=== PATIENT | female | born 1940 | race Caucasian/White ===

== ENCOUNTER 2024-07-21 14:39 | Inpatient (IN) | payer MEDICARE, SELFPAY ==
[2024-07-21 14:45] VITALS: O2SAT 2
--- NOTE | 2024-07-21 14:50 | XR_ITS ---
PROCEDURE INFORMATION: Exam: XR Chest Exam date and time: 07/21/2024 3:06 PM Age: 83 years old Clinical indication: Apnea; Additional info: Shortness of breath TECHNIQUE: Imaging protocol: Radiologic exam of the chest. Views: 1 view. COMPARISON: No relevant prior studies available. FINDINGS: Lungs: Hyperinflated lungs with mild upper lung oligemia suggestive of emphysematous change. Calcified granuloma right mid lung. Lungs are otherwise clear. Pleural spaces: Unremarkable. No pleural effusion. No pneumothorax. Heart/Mediastinum: Unremarkable. No cardiomegaly. Bones/joints: Unremarkable. IMPRESSION: Hyperinflated lungs with mild upper lung oligemia suggestive of emphysematous change. Calcified granuloma right mid lung. Lungs are otherwise clear.
--- NOTE | 2024-07-21 14:50 | ECG_ITS ---
APPROVED REPORT Exam: Resting ECG HR:86 bpm ECG Measurements Heart Rate 86 AXES DE 234 P 84 QRSd 130 QRS -25 QT 411 T 76 QTc 454 Conclusion SINUS RHYTHM WITH FIRST DEGREE AV BLOCK BORDERLINE LEFT AXIS DEVIATION [QRS AXIS < -20] MODERATE INTRAVENTRICULAR CONDUCTION DELAY [110+ ms QRS DURATION] NONSPECIFIC T-WAVE ABNORMALITY ABNORMAL ECG UNCONFIRMED REPORT Electronically signed by : Howie Cartwright MD 07/22/2024 08:11:43
--- NOTE | 2024-07-21 14:54 | PC.NURSE ---
Report from [facility] nurse Dottie WALLER.
[2024-07-21] MEDS: ALBUTEROL 0.083% 2.5 MG/3 ML NEB IH (14:59)
[2024-07-21 15:17] LABS: Basophils # 0.1 K/mm3 (0-0.2); Basophils % 0.8 % (0.1-2.0); Hematocrit 35.8 % (37.0-47.0); Hemoglobin 11.8 g/dL (12.2-16.2); Lymphocytes # 0.4 K/mm3 (0.7-4.5); Lymphocytes % 4.5 % (10-50); Mean Corpuscular Hemoglobin 29.4 pg (27.0-31.2); Mean Corpuscular Volume 89.1 fl (81-99); Mean Platelet Volume 11.9 fl (7.4-10.4); Monocytes # 0.1 K/mm3 (0.1-1.0); Monocytes % 1.1 % (1.7-9.3); Neutrophils # 7.4 K/mm3 (1.8-7.8); Neutrophils % 93.3 % (37.0-80.0); Nucleated Red Blood Cells # 0 10^3/uL; Nucleated Red Blood Cells % 0 %; Platelet Count 166 K/mm3 (142-424); Red Blood Count 4.02 M/mm3 (4.20-5.40); Red Cell Distribution Width-SD 42.6 fL; White Blood Count 7.9 K/mm3 (4.8-10.8)
[2024-07-21 15:19] VITALS: BMI 15.5
[2024-07-21 15:20] LABS: Lactate Venous 1.5 mmol/L (0.4-2.0); VBG Base Excess -0.8 mmol/L (-2.4-2.3); VBG HCO3 23.5 mmol/L (23-30); VBG Oxygen Saturation 96.9 % (50-70); VBG PCO2 36.2 mmol/L (35-51); VBG PH 7.43 mmol/L (7.31-7.41); VBG PO2 88.6 mmol/L (28-40); VBG Total CO2 24.7 mmol/L (23-27)
[2024-07-21 15:21] LABS: MANUAL DIFFERENTIAL MANUAL DIFFERENTIAL (MANUAL DIFF)
--- NOTE | 2024-07-21 15:33 | PC.NURSE ---
Pt and family are poor historians. Family asked to bring home medications in.
[2024-07-21 15:44] LABS: Alanine Aminotransferase 15 U/L (12-78); Albumin Level 4.5 g/dl (3.5-5.0); Albumin/Globulin Ratio 1.8 (1.1-1.8); Alkaline Phosphatase 84 U/L (38-126); Anion Gap 16.6 mEq/L (5-15); Aspartate Amino Transferase 28 U/L (14-36); Bilirubin,Total 0.9 mg/dl (0.2-1.3); Blood Urea Nitrogen 12 mg/dl (7-17); Calcium 9.2 mg/dl (8.4-10.2); Carbon Dioxide 24 mmol/L (22.0-30.0); Chloride 99 mmol/L (98-107); Creatinine Clearance Estimated 27 mL/min (50-200); Estimated Glomerular Filt Rate 95 ml/min (>60); GFR (African American) 115 ML/MIN (>60); Globulin 2.5 g/dL (1.3-3.2); Glucose 140 mg/dl (74-100); Magnesium 1.8 mg/dl (1.6-2.3); Potassium 3.6 mmoL/L (3.5-5.1); Sodium 136 mmol/L (136-145)
[2024-07-21 15:52] LABS: Hemoglobin A1C 5.1 % (4.0-6.0)
[2024-07-21 15:58] LABS: Cholesterol 204 mg/dl (140-200); Triglycerides 76 mg/dl (30-150); VLDL Cholesterol 15 mg/dL (0-40)
[2024-07-21 16:00] VITALS: BP 144/62; PULSE 90; PULSE 92; RESP 22; TEMP 36.5; O2SAT 95
[2024-07-21 16:01] LABS: Free T4 (Free Thyroxine) 1.82 ng/dl (0.78-2.19)
[2024-07-21 16:09] LABS: Direct LDL Cholesterol 65.48 mg/dL (100-129); NT Pro Brain Natriuretic Pep. 1560 pg/mL (0-450)
[2024-07-21 16:19] LABS: HDL Cholesterol 101 mg/dl (40-60)
[2024-07-21 16:20] LABS: Thyroid Stimulating Hormone 0.47 uIU/mL (0.465-4.68)
[2024-07-21 16:21] LABS: Lymphocytes % 7 % (10-50); Monocytes % 1 % (2-9); Neutrophils % 92 % (42-76); Platelet Estimate Normal; RBC Morphology Normal; Total Cells Counted 100
[2024-07-21 16:22] LABS: Procalcitonin 0.186 ng/mL (0.0-2.0)
--- NOTE | 2024-07-21 17:22 | EXP.HP ---
History of Present Illness *Admission Date: 07/21/24 *Reason for visit:: Generalized weakness *History of present illness: Juliette Reyes is a 83-year-old female with medical history significant for COPD on 2 L baseline who initially presented to [facility] for progressive generalized weakness. Patient states she has had nasal congestion over the past few days and has been taking Mucinex. Does endorse intermittent left-sided chest pain for many months, but denies shortness of breath, abdominal pain, fever/chills, cough. She states typical chest pain lasts seconds to minutes without radiation. No former cardiac history, but patient is a former smoker. Patient also had apparent elevated pressures on arrival to [facility], high-sensitivity troponin doubled from 28-59. Patient was symptom-free at this time. Dr. Dillon was contacted by ED provider at [place] who recommended transfer to our facility for suspected NSTEMI. On arrival, patient was sitting in bed eating dinner. However, she was visibly grunting which she states is normal for her. No chest pain, respiratory distress, or hypoxia. Lungs clear to auscultation bilaterally. [facility] Disclaimer: The information contained in this section may have been updated after the patient was seen, as this information can be updated by other users. Medical History (Updated 07/21/24 @ 18:31 by Denis Martinez MD) Abdominal aneurysm Hypertension COPD (chronic obstructive pulmonary disease) Surgical History (Updated 07/21/24 @ 15:31 by Missy Poole RN) H/O: hysterectomy Family History (Updated 07/21/24 @ 15:33 by Missy Poole RN) Other Diabetes Myocardial disease Social History (Updated 07/21/24 @ 15:33 by Missy Poole RN) Smoking Status: Former smoker alcohol intake: never current occupational status: retired Travel in the last 8 weeks: None Other Medical History Have you received the Flu Vaccine for this season: No Have you received the Pneumonia Vaccine: Yes Meds Home Medications and Allergies New Prescriptions to Start Prescriptions: Allergies Allergy/AdvReac Type Severity Reaction Status Date / Time amoxicillin (From Augmentin) Allergy Rash Verified 07/21/24 15:15 cefaclor (From Ceclor) Allergy Rash Verified 07/21/24 15:15 clavulanic acid (From Allergy Rash Verified 07/21/24 15:15 Augmentin) hydrocodone Allergy Unknown Verified 07/21/24 15:15 allergy reaction nitrofurantoin (From Allergy Rash Verified 07/21/24 15:15 Macrobid) omeprazole (From Prilosec) Allergy Unknown Verified 07/21/24 15:15 allergy reaction oxaprozin (From Daypro) Allergy Rash Verified 07/21/24 15:15 sulfamethoxazole (From Allergy Rash Verified 07/21/24 15:15 Bactrim) trimethoprim (From Bactrim) Allergy Rash Verified 07/21/24 15:15 Exam Data for Last 24 hours Vital signs and Labs for Last 24 Hours: Temp Pulse Resp BP Pulse Ox O2 Del Method O2 Flow Rate 97.7 F 92 H 22 144/62 H 95 Nasal Cannula 3 07/21/24 16:00 07/21/24 16:00 07/21/24 16:00 07/21/24 16:00 07/21/24 16:00 07/21/24 17:00 07/21/24 17:00 Laboratory Results - last 24 hr 07/21/24 14:59: VBG pH 7.43 H, VBG pCO2 36.2, VBG pO2 88.6 H, VBG HCO3 23.5, VBG Total CO2 24.7, VBG O2 Saturation 96.9 H, VBG Base Excess -0.8, VBG Lactic Acid 1.5 07/21/24 15:00: WBC 7.9, RBC 4.02 L, Hgb 11.8 L, Hct 35.8 L, MCV 89.1, MCH 29.4, MCHC 33.0, RDW 13.0, Plt Count 166, MPV 11.9 H, Neut % (Auto) 93.3 H, Lymph % (Auto) 4.5 L, [place] % (Auto) 1.1 L, Eos % (Auto) 0.0 L, Baso % (Auto) 0.8, Neut # (Auto) 7.4, Lymph # (Auto) 0.4 L, [place] # (Auto) 0.1, Eos # (Auto) 0.0, Baso # (Auto) 0.1, Total Counted 100, Neutrophils % (Manual) 92 H, Lymphocytes % (Manual) 7 L, Monocytes % (Manual) 1 L, Platelet Estimate Normal, RBC Morphology Normal, Sodium 136, Potassium 3.6, Chloride 99, Carbon Dioxide 24, Anion Gap 16.6 H, BUN 12, Creatinine 0.60, Estimated Creat Clear 27, Estimated GFR 95, Est GFR ( Amer) 115, Glucose 140 H, Hemoglobin A1c 5.1, Calcium 9.2, Magnesium 1.8, Total Bilirubin 0.9, AST 28, ALT 15, Alkaline Phosphatase 84, Troponin I 0.10 H, NT-Pro-B Natriuret Pep 1560 H, Total Protein 7.0, Albumin 4.5, Globulin 2.5, Albumin/Globulin Ratio 1.8, Triglycerides 76, Cholesterol 204 H, LDL Cholesterol Direct 65.48 L, VLDL Cholesterol 15, HDL Cholesterol 101 H, Cholesterol/HDL Ratio 2.0, Procalcitonin 0.186, TSH 0.47, Free T4 1.82 I & O for Last 24 hours: Intake & Output 07/18/24 07/19/24 07/20/24 07/21/24 23:59 23:59 23:59 23:59 Weight 40.965 kg Constitutional Constitutional: no acute distress and cachectic *Routine HEENT Exam Head: Present normocephalic Eye: Present EOMI and PERRL ENT: Present mucous membranes moist *Routine Neck Exam Neck: Present supple; Absent lymphadenopathy *Routine Respiratory Exam Respiratory: Present CTA bilaterally *Routine Cardiovascular Exam Cardiovascular: Present RRR *Routine Abdominal Exam Abdominal: Present soft and normoactive bowel sounds; Absent tenderness *Routine Rectal Exam Rectal:: deferred *Routine Genitalia Exam Genitalia:: deferred *Routine Extremities Exam Extremities: Absent cyanosis, clubbing or edema *Routine Skin Exam Skin: Present warm; Absent rash *Routine Neurological Exam Neurological: Present alert and oriented X3 Assessment and Plan *Assessment and plan (1) NSTEMI (non-ST elevated myocardial infarction): Status: Acute Category: Medical Code(s): I21.4 - Non-ST elevation (NSTEMI) myocardial infarction (2) COPD (chronic obstructive pulmonary disease): Status: Acute Category: Medical Code(s): J44.9 - Chronic obstructive pulmonary disease, unspecified Plan Juliette Reyes is a 83-year-old female with medical history significant for COPD on 2 L baseline who initially presented to [facility] for progressive generalized weakness. Patient states she has had nasal congestion over the past few days and has been taking Mucinex. Does endorse intermittent left-sided chest pain for many months, but denies shortness of breath, abdominal pain, fever/chills, cough. She states typical chest pain lasts seconds to minutes without radiation. No former cardiac history, but patient is a former smoker. Patient also had apparent elevated pressures on arrival to [facility], high-sensitivity troponin doubled from 28-59. Patient was symptom-free at this time. Dr. Dillon was contacted by ED provider at [place] who recommended transfer to our facility for suspected NSTEMI. On arrival, patient was sitting in bed eating dinner. However, she was visibly grunting which she states is normal for her. No chest pain, respiratory distress, or hypoxia. Lungs clear to auscultation bilaterally. #NSTEMI #Intermittent left-sided chest pains #Generalized weakness ? Patient seem to be relatively comfortable, symptom-free and at baseline on arrival. Progressive weakness over the past week. ? Initial troponin 0.10, EKG without acute ischemic changes. Delta downtrend from high-sensitivity troponin of 59 at [place]. ? Given intermittent left-sided chest pains, and a former smoker we will treat this as an NSTEMI. ? Continue therapeutic Lovenox pending cardiology evaluation tomorrow. Aspirin load given at [place]. ? At this time, patient does not seem to be interested in left heart catheterization. ? A1c 5.1, LDL 65, TSH normal. ? Started aspirin 81 mg, metoprolol succinate 25 mg. ? Follow-up ECHO. ? Continuous cardiac telemetry. ? Follow-up repeat troponin at 6 PM. ? PT/OT consulted, pending recommendations. Follow-up UA, folate, B12, iron studies. #Elevated BNP ? BNP 1560, no signs of volume overload. Likely chronic heart disease. ? Follow-up ECHO. #COPD ? At baseline, grunting is baseline per patient. On 2.5 L. ? DuoNebs every 6 hours scheduled. Full code DVT prophylaxis: Lovenox 30 mg
[2024-07-21 18:46] LABS: Troponin I 0.12 ng/ml (0.00-0.034)
[2024-07-21 18:49] LABS: Adenovirus,PCR Not Detected (NotDetected); Bordetella Pertussis Not Detected (NotDetected); Chlamydophila Pneumoniae, PCR Not Detected (NotDetected); Coronavirus 19, PCR Not Detected (NotDetected); Coronavirus 229E Not Detected (NotDetected); Coronavirus NL63 Not Detected (NotDetected); Coronavirus OC43 Not Detected (NotDetected); Coronovirus HKU1,PCR Not Detected (NotDetected); Human Metapneumovirus Not Detected (NotDetected); Influenza A, PCR Not Detected (NotDetected); Influenza AH1, 2009 Not Detected (NotDetected); Influenza AH1, PCR Not Detected (NotDetected); Influenza AH3,PCR Not Detected (NotDetected); Influenza B, PCR Not Detected (NotDetected); Mycoplasma Pneumoniae, PCR Not Detected (NotDetected); Parainfluenza 1, PCR Not Detected (NotDetected); Parainfluenza 2, PCR Not Detected (NotDetected); Parainfluenza 3, PCR Not Detected (NotDetected); Parainfluenza 4, PCR Not Detected (NotDetected); Respiratory Syncytial Virus Not Detected (NotDetected); Rhinovirus/Enterovirus Not Detected (NotDetected)
[2024-07-21 20:00] VITALS: BP 150/79; PULSE 100; PULSE 85; RESP 16; TEMP 36.5; O2SAT 96
[2024-07-21] MEDS: METOPROLOL SUCCINATE XL 25MG TABLET 25 MG PO (20:07)
[2024-07-21] MEDS: IPRATROPIUM/ALBUTEROL 3 ML NEB IH (23:01)
[2024-07-21 23:19] VITALS: PULSE 87
[2024-07-22] VITALS (23 sets, daily range): BP systolic 124–169; BP diastolic 65–92; PULSE 60–110; RESP 14–20; TEMP 36.5–37; O2SAT 90–100; BMI 15.2
[2024-07-22] MEDS: MAGNESIUM SULFATE IN WATER 2 GM/50 ML PIGGYBACK IV (00:53)
--- NOTE | 2024-07-22 00:58 | PC.NURSE ---
patient had an episode of tachycardia 110's, soa with wheezes t/o and crackles at bases, while anxiously sitting on the side of the bed fanning herself. states she has episodes of anxiety at home. hospitalist at bedside. neb ordered w/ CXR. replaced magnesium also.
[2024-07-22 01:07] LABS: Microscopic, Urine URINE MICROSCOPIC (MICROSCOPIC)
[2024-07-22] MEDS: IPRATROPIUM BROMIDE 0.5 MG/2.5ML SOLUTION IH (01:19)
[2024-07-22 01:25] LABS: Bilirubin,Urine Negative (Negative); Blood, Urine 1+ (Negative); Color,Urine YELLOW (Yellow); Glucose,Urine (UA) Negative (Negative); Ketones,Urine 2+ (Negative); Leukocyte Esterase,Urine Negative (Negative); Nitrate,Urine Negative (Negative); PH,Urine 6.5 (5.0-8.5); Protein,Urine 1+ (Negative); Specific Gravity, Urine 1.015 (1.005-1.030); Urobilinogen,Urine 0.2 EU/dl (0.2)
[2024-07-22 01:26] LABS: Appearance,Urine Slightly Cloudy (Clear)
[2024-07-22 01:36] LABS: Bacteria,Urine Trace /lpf; WBC,Urine Occasional #/hpf (0-3)
[2024-07-22] MEDS: IPRATROPIUM/ALBUTEROL 3 ML NEB IH ×4 (05:57→23:49)
--- NOTE | 2024-07-22 08:26 | IR_ITS ---
APPROVED REPORT Patient Location: Inpatient Back Up Scan Coordinator: Jose Elias Hernandez, RT (R) PROCEDURES Left heart catheterization Left ventriculogram Selective coronary angiogram Drug-eluting stent deployment to the proximal and mid dominant right coronary artery INDICATION Non-ST elevation myocardial infarction, Coronary artery disease Informed consent was obtained prior to the procedure. COMPLICATIONS none Estimated Blood Loss: less than 10ml TECHNIQUE One percent lidocaine used to anesthetize the right anterior aspect of the wrist. The right radial artery was accessed via the Seldinger technique. A 6 Sudanese sheath was placed in the right radial artery. 2.5 mg of Verapamil, 800 mcg of nitroglycerin, 1mg Lidocaine and 5000 U Heparin were given through the arterial sheath. The 6 Sudanese JL 3 guide catheter was also used to perform left heart catheterization, left ventriculogram and selective coronary angiogram. At the end of the procedure the sheath was removed good hemostasis was achieved using Traclet band, patient was transferred to the postop holding area in stable condition. ANGIOGRAPHIC RESULTS The left main artery Normal The left anterior descending artery Has proximal calcified 30% stenoses with mid vessel 10 to 20% stenoses. The large diagonal artery has diffuse 10 to 20% stenoses The circumflex artery Nondominant yet still large with diffuse 10% luminal regularities The right coronary artery Dominant with proximal 38 concentric 40% stenosis with a mid vessel 70% stenosis followed by an additional 70% stenosis. Distally there is a 30% eccentric stenosis The CROOK ventriculogram reveals Normal 65% The left ventricular end-diastolic pressure 15 mmHg IMPRESSION Severe disease throughout the dominant right coronary artery as described above Successful stenting the dominant right coronary severe disease reduced to 0% with 2 contiguous drug-eluting stents Normal ejection fraction Normal LVEDP PLAN 1. Plavix and aspirin 2. Risk factor modification 3. Cardiac rehabilitation 4. Avoidance of tobacco products 5. LDL less than 55 to be achieved with high intensity statin Electronically signed by : Antoni Dillon MD 07/22/2024 14:10:20
[2024-07-22 08:37] LABS: Vitamin B12 375 pg/mL (239-931)
[2024-07-22 09:16] LABS: Folate 8.71 ng/mL
[2024-07-22] MEDS: METOPROLOL SUCCINATE XL 25MG TABLET 25 MG PO (09:18)
[2024-07-22] MEDS: ASPIRIN EC 81MG TABLET 81 MG PO (09:18)
--- NOTE | 2024-07-22 09:21 | P.CONCA_ITS ---
History of Present Illness History of Present Illness Consult date: 07/22/24 Requesting physician: Dneis Martinez Consult reason: shortness of breath Chief complaint: SOA,shaking Additional Medical History:: 1. COPD -ex-smoker (quit about 2012, only smoked for 12 years per patient) -oxygen requiring 2. History of anxiety 3. Abdominal aortic aneurysm 5 cm per patient 4. Hypertension History of present illness: Juliette Reyes is a 83-year-old female with medical history significant for COPD on 2 L baseline who initially presented to [facility] for progressive generalized weakness. Patient states she has had nasal congestion over the past few days and has been taking Mucinex. Does endorse intermittent left-sided chest pain for many months, but denies shortness of breath, abdominal pain, fever/chills, cough. She states typical chest pain lasts seconds to minutes without radiation. No former cardiac history, but patient is a former smoker. Patient also had apparent elevated pressures on arrival to [facility], high-sensitivity troponin doubled from 28-59. Patient was symptom-free at this time. Dr. Dillon was contacted by ED provider at [place] who recommended transfer to our facility for suspected NSTEMI. On arrival, patient was sitting in bed eating dinner. However, she was visibly grunting which she states is normal for her. No chest pain, respiratory distress, or hypoxia. Lungs clear to auscultation bilaterally. The above per Dr. Martinez Pt is in bedside chair this AM. Tremulous but answers questions. Sometimes confused about where she is currently but reorients quickly from family members. Recent / one week ago has patient upset and she admits that she does not bounce back quickly when she sees family members upset. She thinks most of her symptoms have onset since taking Mucinex and in light of the elevated troponins, she is interested in having the cardiac cath. She reports having one many years ago in [place] without need for stents. [facility] Disclaimer: The information contained in this section may have been updated after the patient was seen, as this information can be updated by other users. Medical History (Updated 07/22/24 @ 09:35 by PRITI Shafer) Abdominal aneurysm Hypertension COPD (chronic obstructive pulmonary disease) Surgical History (Updated 07/21/24 @ 15:31 by Missy Poole RN) H/O: hysterectomy Family History (Updated 07/21/24 @ 15:33 by Missy Poole RN) Other Diabetes Myocardial disease Social History (Updated 07/21/24 @ 18:34 by Denis Martinez MD) Smoking Status: Former smoker alcohol intake: never current occupational status: retired Travel in the last 8 weeks: None Have you lived/traveled outside [place] in past 30 days?: No Contact w/someone who lives/traveled outside US past 30 days?: No Exposure to someone with infectious disease in past 14 days?: No Do you have a fever (greater than 100.4 F or 38 C)?: No Have you tested positive for COVID-19: No Exposed to someone with COVID-19 in past 14 days?: No Do you have a sore throat?: No Do you have a cough?: No Do you have any weakness?: No Do you have any diarrhea?: No Are you experiencing any unusual bleeding?: No Do you have any muscle aches/pain?: No Do you have any abdominal pain?: No Are you experiencing loss of taste or smell?: No Review of Systems Review of Systems Review of systems:: pertinent systems reviewed and negative unless documented below *Cardiovascular Cardiovascular: Reports chest pain, Reports dyspnea and Reports dyspnea on exertion *Respiratory Respiratory: Reports dyspnea, Reports dyspnea on exertion and Denies wheezing *Gastrointestinal Gastrointestinal: Denies diarrhea and Denies vomiting Allergic/Immunologic Allergic/Immunologic: Denies wheezing Exam Data for Last 24 hours Vital signs and Labs for Last 24 Hours: Temp Pulse Resp BP Pulse Ox O2 Del Method O2 Flow Rate 97.9 F 87 18 163/81 H 91 L Nasal Cannula 2 07/22/24 04:00 07/22/24 05:57 07/22/24 04:00 07/22/24 04:00 07/22/24 05:57 07/22/24 08:58 07/22/24 08:58 FiO2 28 07/21/24 23:20 Laboratory Results - last 24 hr 07/21/24 01:00: Urine Color Yellow, Urine Appearance Slightly cloudy, Urine pH 6.5, Ur Specific [place] 1.015, Urine Protein 1+ A, Urine Glucose (UA) Negative, Urine Ketones 2+, Urine Blood 1+ A, Urine Nitrate Negative, Urine Bilirubin Negative, Urine Urobilinogen 0.2, Ur Leukocyte Esterase Negative, Urine RBC 5- 10, Urine WBC Occasional, Ur Squamous Epith Cells 10-20, Urine Bacteria Trace 07/21/24 14:59: VBG pH 7.43 H, VBG pCO2 36.2, VBG pO2 88.6 H, VBG HCO3 23.5, VBG Total CO2 24.7, VBG O2 Saturation 96.9 H, VBG Base Excess -0.8, VBG Lactic Acid 1.5 07/21/24 15:00: WBC 7.9, RBC 4.02 L, Hgb 11.8 L, Hct 35.8 L, MCV 89.1, MCH 29.4, MCHC 33.0, RDW 13.0, Plt Count 166, MPV 11.9 H, Neut % (Auto) 93.3 H, Lymph % (Auto) 4.5 L, [place] % (Auto) 1.1 L, Eos % (Auto) 0.0 L, Baso % (Auto) 0.8, Neut # (Auto) 7.4, Lymph # (Auto) 0.4 L, [place] # (Auto) 0.1, Eos # (Auto) 0.0, Baso # (Auto) 0.1, Total Counted 100, Neutrophils % (Manual) 92 H, Lymphocytes % (Manual) 7 L, Monocytes % (Manual) 1 L, Platelet Estimate Normal, RBC Morphology Normal, Sodium 136, Potassium 3.6, Chloride 99, Carbon Dioxide 24, Anion Gap 16.6 H, BUN 12, Creatinine 0.60, Estimated Creat Clear 27, Estimated GFR 95, Est GFR ( Amer) 115, Glucose 140 H, Hemoglobin A1c 5.1, Calcium 9.2, Magnesium 1.8, Total Bilirubin 0.9, AST 28, ALT 15, Alkaline Phosphatase 84, Troponin I 0.10 H, NT-Pro-B Natriuret Pep 1560 H, Total Protein 7.0, Albumin 4.5, Globulin 2.5, Albumin/Globulin Ratio 1.8, Triglycerides 76, Cholesterol 204 H, LDL Cholesterol Direct 65.48 L, VLDL Cholesterol 15, HDL Cholesterol 101 H, Cholesterol/HDL Ratio 2.0, Procalcitonin 0.186, TSH 0.47, Free T4 1.82 07/21/24 18:05: Troponin I 0.12 H 07/21/24 18:45: Chlamy pneumoniae PCR Not detected, Adenovirus (PCR) Not detected, B. pertussis DNA (PCR) Not detected, Coronavirus OC43 (PCR) Not detected, Coronavirus HKU1 (PCR) Not detected, Coronavirus 229E (PCR) Not detected, SARS-CoV-2 (PCR) Not detected, Coronavirus NL63 (PCR) Not detected, Human Metapneumovir PCR Not detected, Influenza A (H1) PCR Not detected, Influ A (H1N1/09) PCR Not detected, Influenza A (H3) PCR Not detected, Influenza Type A (PCR) Not detected, Influenza Type B (PCR) Not detected, M. pneumoniae (PCR) Not detected, Parainfluenza 1 (PCR) Not detected, Parainfluenza 2 (PCR) Not detected, Parainfluenza 3 (PCR) Not detected, Parainfluenza 4 (PCR) Not detected, RSV (PCR) Not detected, Entero/Rhino (PCR) Not detected 07/22/24 06:08: Vitamin B12 375, Folate 8.71 I & O for Last 24 hours: Intake & Output 07/19/24 07/20/24 07/21/24 07/22/24 11:59 11:59 11:59 11:59 Intake Total 480 / 480 Output Total 305 / 305 Balance 175 / 175 Weight 89 lb 5 oz Constitutional Constitutional: mild distress, cachectic and chronically ill appearing *Routine Respiratory Exam Respiratory: Present decreased breath sounds; Absent rales or wheezes *Routine Cardiovascular Exam Cardiovascular: Present RRR; Absent murmur, gallop or rubs *Routine Extremities Exam Extremities: Absent edema Meds Home Medications and Allergies Home Medications ?Medication ?Instructions ?Recorded ?Confirmed ?Type bisoprolol fumarate 5 mg tablet 2.5 mg PO DAILY 07/22/24 07/22/24 History furosemide 40 mg tablet 20 mg PO DAILY 07/22/24 07/22/24 History New Prescriptions to Start Prescriptions: Allergies Allergy/AdvReac Type Severity Reaction Status Date / Time amoxicillin (From Augmentin) Allergy Rash Verified 07/21/24 15:15 cefaclor (From Ceclor) Allergy Rash Verified 07/21/24 15:15 clavulanic acid (From Allergy Rash Verified 07/21/24 15:15 Augmentin) hydrocodone Allergy Unknown Verified 07/21/24 15:15 allergy reaction nitrofurantoin (From Allergy Rash Verified 07/21/24 15:15 Macrobid) omeprazole (From Prilosec) Allergy Unknown Verified 07/21/24 15:15 allergy reaction oxaprozin (From Daypro) Allergy Rash Verified 07/21/24 15:15 sulfamethoxazole (From Allergy Rash Verified 07/21/24 15:15 Bactrim) trimethoprim (From Bactrim) Allergy Rash Verified 07/21/24 15:15 Assessment and Plan *Assessment and plan (1) NSTEMI (non-ST elevated myocardial infarction): Status: Acute Category: Medical Code(s): I21.4 - Non-ST elevation (NSTEMI) myocardial infarction (2) COPD (chronic obstructive pulmonary disease): Status: Acute Qualifiers: COPD type: unspecified COPD Qualified Code(s): J44.9 - Chronic obstructive pulmonary disease, unspecified Category: Medical Code(s): J44.9 - Chronic obstructive pulmonary disease, unspecified (3) Abdominal aneurysm: Status: Acute Category: Medical Code(s): I71.40 - Abdominal aortic aneurysm, without rupture, unspecified Plan 1. NSTEMI -Continue aspirin -Troponin max 0.12 -check echo -proceed with [facility] -Heart score at least 7 (history 1 point, ECG 1 point, age 2 points, risk factor 1 point, troponin 2 points) with 72.7% MACE over the next 6 wks. 2. Elevated BNP with no chest x-ray evidence of CHF -Likely due to non-STEMI 3. Hypertension -Continue metoprolol 4. LDL 65 with HDL of 101 -Consider statin therapy pending cardiac cath results 5. Mild anemia with hemoglobin 11.8 -Continue to monitor 6. Ex-smoker with COPD, oxygen requiring -Continue oxygen 7. History of abdominal aortic aneurysm at 5 cm -Ultrasound of the abdomen for further evaluation Check echo Check abdominal ultrasound for sizing of AAA Proceed with cardiac cath Further recommendations to follow. Abd Aortic ultrasound shows AAA at 6 cm. Will discuss timing of referral for [facility] consideration with Vascular surgery. [facility] revealed significant RCA stenosis for which 2 ALYSIA were placed. STarted on DAPT with ASA/plavix. Echo shows: Technically difficult study. Normal biventricular systolic function. Mild to moderate RV dilation. Biatrial dilation. Moderate MR (eccentric posterior jet). Mild AI, mild TR, mild PI. Elevated RVSP is 40-45 mmHg. Will add lasix due to elevated RVSP and dyspnea. Monitor overnight with anticipated discharge in AM.
--- NOTE | 2024-07-22 09:47 | US_ITS ---
FINAL REPORT CLINICAL HISTORY: History of AAA FINDINGS: Limited sonographic images were obtained of the abdomen to evaluate the abdominal aorta and iliac arteries. The abdominal aorta measures up to 6 cm in greatest dimension. There is mural thrombus. The iliac arteries are within normal limits. IMPRESSION: Abdominal aortic aneurysm measuring up to 6 cm. Consider CTA for further evaluation. Reviewed, Interpreted and Dictated by Jasmin Metz MD Transcribed by Caroline Maloney Authenticated and [facility]
--- NOTE | 2024-07-22 10:56 | HMH.OTEV ---
OT Inpatient Evaluation Rehab OT IP Evaluation Start: 07/21/24 18:31 Freq: ONCE Status: Active Protocol: Document 07/22/24 10:51 [facility] (Rec: 07/22/24 10:56 [facility] [id number]) Rehab OT IP Assessment Subjective History Pt oriented x 2 on arrival. Family present and supportive. Pt admitted on 07/21/24 due to N-STEMI and COPD exacerbation. History and physical: Juliette Reyes is a 83-year- old female with medical history significant for COPD on 2 L baseline who initially presented to [facility] for progressive generalized weakness. Patient states she has had nasal congestion over the past few days and has been taking Mucinex. Does endorse intermittent left-sided chest pain for many months, but denies shortness of breath, abdominal pain, fever/chills, cough. She states typical chest pain lasts seconds to minutes without radiation. No former cardiac history, but patient is a former smoker. Patient also had apparent elevated pressures on arrival to [facility], high-sensitivity troponin doubled from 28-59. Patient was symptom-free at this time. Dr. Dillon was contacted by ED provider at [place] who recommended transfer to our facility for suspected NSTEMI. On arrival, patient was sitting in bed eating dinner. However, she was visibly grunting which she states is normal for her. No chest pain , respiratory distress, or hypoxia. Lungs clear to auscultation bilaterally. Subjective Prior to being in the hospital , pt lived at home with her . Pt wears 2L of O2 at all times. Pt uses a rolling walker during functional mobility tasks when out in public. Pt does not use it at home. No steps in home. Family assists with bathing and dressing, but she is independent with feeding. Pt dependent upon family for completion of all IADLs. Objective Patient Orientation Person,Birthday Right Upper Extremity Gross ROM Min Limitation <25% Left Upper Extremity Gross ROM Min Limitation <25% Bed Mobility bed mobility-scooting,bed mobility - supine/sit Assist Level Supervision/Stand by Transfer Training Sit/Stand Transfer Assist Level Minimal x 1 (25% assist) Chair Transfer Ability Minimal x 1 (25% assist) Chair Transfer Technique Sit to/from Ambulatory Chair Transfer Assistive Devices Rolling Walker Lower Body Dressing Ability Moderate Assistance Rehab OT IP prob,goals,plan Problems Date of Evaluation: 07/22/24 OT IP Problems Bed Mobility,Transfers,Balance ,Self care,Safety Rehab Potential Rehab Potential Good Equipment Needs Assistive Devices Rolling / Wheeled Walker Plan OT intervention Plan Bed Mobility,Transfers,Balance ,Self care,Safety,Therapeutic Exercise OT Plan Frequency Daily Duration LOS Discharge Goals Bed Mobility Ability Standby Assistance Sit to Stand Chair Transfer Ability Contact Guard/Hand Hold Chair Transfer Ability Contact Guard/Hand Hold Chair Transfer Technique Sit to/from Ambulatory Chair Transfer Assistive Devices Rolling Walker Feeding Ability Assist with Tray Set Up Lower Body Dressing Ability Minimal Assistance Upper Body Dressing Ability Contact Guard Bathing Ability Moderate Assistance Performing Toilet Hygiene Ability Moderate Assistance Overall Commode/Toilet Transfer Ability Contact Guard,Minimal Assistance Commode/Toilet Transfer Technique Sit to/from Ambulatory Commode/Toilet Transfer Assistive Grab Bars Devices Oral Care Assist Contact Guard Decrease in Endurance Yes Discharge Plan OT Discharge Plan Pt will continue to be seen for OT services while at [facility]. Pt appears to be close to her baseline with functional transfers and ADL independence . Pt can return home with families continued 24/10 care. Therapist recommends OT evaluation upon returning home for continued skilled therapy . Continued skilled therapy is important in order for patient to improve strength, safety, endurance, ADL independence, and functional transfers to reach PLOF. Eval Complexity Eval Charge Codes 48772 - Moderate Complexity PHYSICIAN CERTIFICATION: I certify the specified therapy services for Vannesa Reyes are required, authorized, and reviewed every 30 days.
--- NOTE | 2024-07-22 11:58 | HMH.PTEV ---
Physical Therapy Evaluation Rehab PT IP Evaluation Start: 07/21/24 16:12 Freq: ONCE Status: Active Protocol: Document 07/22/24 09:00 [facility] (Rec: 07/22/24 11:58 [facility] [id number]) Subjective/History History History 83-year-old female with medical history significant for COPD on 2 L baseline who initially presented to [facility] for progressive generalized weakness. Patient states she has had nasal congestion over the past few days and has been taking Mucinex. Does endorse intermittent left-sided chest pain for many months, but denies shortness of breath, abdominal pain, fever/chills, cough. She states typical chest pain lasts seconds to minutes without radiation. No former cardiac history, but patient is a former smoker. Patient also had apparent elevated pressures on arrival to [facility], high-sensitivity troponin doubled from 28-59. Patient was symptom-free at this time. Dr. Dillon was contacted by ED provider at [place] who recommended transfer to our facility for suspected NSTEMI. On arrival, patient was sitting in bed eating dinner. However, she was visibly grunting which she states is normal for her. No chest pain , respiratory distress, or hypoxia. Lungs clear to auscultation bilaterally. Pt reports she lives with her , she is generally independent with all ADLs ( family reports that is untrue and she did require significant assistance), and she is ambulatory using a RW at baseline. Subjective Subjective Pt appears mildly confused this am and, per family, has required a significant amount of assistance for some time prior to adm. She does agree to mobility assessment this am . [facility] How much help from another person do you currently need... Turning from your back to your side A little while in a flat bed without using bedrails? Moving from lying on back to sitting on A little the side of a flat bed without using bedrails? Moving to and from a bed to a chair ( A little including a wheelchair)? Standing up from a chair using your arms A little ? (e.g., wheelchair, bedside chair) Walking in hospital room? A little Climbing 3-5 steps with a railing? A little Mobility Score 18 Mobility Level [facility] Mobility Calculator Mobility 6 Walk 10 steps or more Rehab PT IP Eval Objective Appearance Patient Behavior Appropriate,Confused Patient Orientation Person Difficulty following instructions mild Speech Pattern Clear Ambulation Patient Able to Ambulate Yes Ambulation Observation IP General Gait Pattern Observation Ataxic Gait Ambulation Distance (feet) 15 Ambulation Ability Minimal x 2 (25% assist) Balance Ability to Arise Able, uses arms to help Sitting Balance Steady, safe Standing Balance Unsteady Dynamic Sitting Balance Ability Fair Dynamic Standing Balance Ability Poor Transfers Bed Transfer Ability Contact Guard/Hand Hold Chair Transfer Ability Minimal x 1 (25% assist) Sit to Stand Bed Transfer Ability Minimal x 1 (25% assist) Sit to Stand Chair Transfer Ability Minimal x 1 (25% assist) Rehab PT IP prob,goals,plan Problems Date of Evaluation: 07/22/24 PT IP Problems Bed Mobility,Transfers,Gait Rehab Potential Rehab Potential Good Plan PT Intervention Plan Bed Mobility,Transfers,Gait PT Plan Frequency Daily Duration LOS Discharge Goals Bed Transfer Ability Supervision/Stand by Sit to Stand Chair Transfer Ability Contact Guard/Hand Hold Ambulation Assistive Device Rolling Walker Ambulation Distance (feet) 20 Discharge Plan PT Discharge Plan Pt currently appears appropriate to return home once medically stable for d/c. Limited with mobility mostly due to increased SOA upon exertion. Wears O2 at all times at home. Oxygen sat 93% prior to activity and 80% immediately after activity with O2 on via NC at 3.5 L/min at all times during treatment . O2 returned to 89% after 2-3 mins of rest once returned to sitting at EOB. Skilled therapy remains indicated to improve transfers and ambulation to return to [facility]. Eval Complexity Eval Charge Codes 02157 - High Complexity PHYSICIAN CERTIFICATION: I certify the specified therapy services for Vannesa Reyes are required, authorized, and reviewed every 30 days.
[2024-07-22] MEDS: diphenhydrAMINE 50MG/ML VIAL 50 MG IV (13:20)
[2024-07-22] MEDS: HEPARIN 1,000 UNITS/500ML NS (CATH LAB) 3000 UNIT IV (13:20)
[2024-07-22] MEDS: LIDOCAINE 1% 10ML MDV 10 ML IJ (13:20)
[2024-07-22] MEDS: HEPARIN 1,000 UNITS/ML 10ML VIAL (CATH LAB) 5000 UNIT IV (13:21)
[2024-07-22] MEDS: 0.9 % SODIUM CHLORIDE 500 ML 25 ML IV (13:21)
[2024-07-22] MEDS: VERAPAMIL 2.5MG/ML 2ML VIAL 2.5 MG IV (13:21)
[2024-07-22] MEDS: MIDAZOLAM HCL 1MG/ML 5ML VIAL 1 MG IV (13:22)
[2024-07-22] MEDS: FENTANYL 100MCG/2ML VIAL 50 MCG IV (13:22)
[2024-07-22] MEDS: NITROGLYCERIN 800MCG/8ML SYR (CATH LAB) 800 MCG IA (13:22)
[2024-07-22] MEDS: CLOPIDOGREL 300MG TABLET 600 MG PO (14:01)
[2024-07-22] MEDS: IOPAMIDOL-370 (76%);100ML BOTTLE 60 ML IV (14:09)
[2024-07-22 14:11] LABS: CATHL Activated Clotting Time 284 SEC (74-125)
[2024-07-22 15:39] LABS: Basophils % 0.3 % (0.1-2.0); Hematocrit 31.8 % (37.0-47.0); Hemoglobin 10.5 g/dL (12.2-16.2); Lymphocytes # 0.6 K/mm3 (0.7-4.5); Lymphocytes % 6.7 % (10-50); Mean Corpuscular Hemoglobin 29.7 pg (27.0-31.2); Mean Corpuscular Volume 90.1 fl (81-99); Mean Platelet Volume 11.5 fl (7.4-10.4); Monocytes # 0.9 K/mm3 (0.1-1.0); Monocytes % 9.9 % (1.7-9.3); Neutrophils # 7.9 K/mm3 (1.8-7.8); Neutrophils % 82.8 % (37.0-80.0); Nucleated Red Blood Cells # 0 10^3/uL; Nucleated Red Blood Cells % 0 %; Platelet Count 222 K/mm3 (142-424); Red Blood Count 3.53 M/mm3 (4.20-5.40); Red Cell Distribution Width 13.5 % (11.5-17.5); Red Cell Distribution Width-SD 43.9 fL; White Blood Count 9.5 K/mm3 (4.8-10.8)
[2024-07-22 15:56] LABS: Albumin Level 4.3 g/dl (3.5-5.0); Chloride 102 mmol/L (98-107)
[2024-07-22 15:57] LABS: Potassium 3.5 mmoL/L (3.5-5.1); Sodium 139 mmol/L (136-145)
[2024-07-22 15:59] LABS: Anion Gap 10.5 mEq/L (5-15); Blood Urea Nitrogen 17 mg/dl (7-17); Carbon Dioxide 30 mmol/L (22.0-30.0); Creatinine Clearance Estimated 27 mL/min (50-200); Estimated Glomerular Filt Rate 68 ml/min (>60); GFR (African American) 83 ML/MIN (>60)
[2024-07-22 16:00] LABS: Alanine Aminotransferase 18 U/L (12-78); Alkaline Phosphatase 69 U/L (38-126); Aspartate Amino Transferase 58 U/L (14-36); Bilirubin,Total 0.6 mg/dl (0.2-1.3); Calcium 8.9 mg/dl (8.4-10.2); Globulin 2.2 g/dL (1.3-3.2); Glucose 98 mg/dl (74-100); Magnesium 2.3 mg/dl (1.6-2.3); Total Protein,Serum 6.5 g/dl (6.3-8.2)
[2024-07-22 16:12] LABS: Ferritin 82.8 ng/ml (11.1-264)
--- NOTE | 2024-07-22 18:29 | CA_ITS ---
APPROVED REPORT EXAM: Comprehensive 2D, Doppler, and color-flow Echocardiogram Pet Care Technician: Amy Dickerson RT(R) Ht: 5 ft 4 in Wt: 90lbs BSA: 1.39 BP: 144/80 mmHg Indications: NSTEMI, COPD, HTN, home O2, AAA, ex smoker 2D Dimensions IVSd 1.15 cm F: 0.6-1.0 LVEF (Visual) 65.20 % PWd 0.79 cm F: 0.6 - 1.0 LVDd 3.10 cm F: 3.9 - 5.3 LVDs 2.03 cm F: 2.2 - 3.5 M-Mode Dimensions LA Diam 3.35 cm (1.9-4.0) TAPSE 2.15 (<1.7) LV Diastology E Decel Time 150 (160-240 msec) E/A Ratio 0.7 Aortic Valve BHAVANA Index 1.28 cm2/m2 AoV Peak Fede. 137.0 (50-130 cm/s) AI PHT 2648.00 ms AO Peak GR. 7.50 mmHg AO Mean GR. 4.50 (<5 mmHg) AO VTI 27.3 (18-25 cm) BHAVANA (VTI) 1.83 (2.5-4.5 cm2) Mitral Valve MV E Max Fede. 65.0 (40-130 cm/s) MV A Velocity 97.0 (40-130 cm/s) E/A Ratio 0.67 MV PHT 44.0 ms Pulmonary Valve PV Peak Velocity 147.0 (50-150 cm/s) Tricuspid Valve TR P. Velocity 353.00 cm/s RAP Estimate 10.00 mmHg RVSP 60.00 mmHg Left Ventricle The left ventricle is normal size. The left ventricular systolic function is normal. The left ventricular ejection fraction is within the normal range. There is increased LV wall thickness. Regional wall motion is difficult to evaluate due to technically difficult study. Diastolic function is indeterminate. LVEF is 55%. Right Ventricle Right ventricle is mild to moderately dilated. The right ventricular systolic function is normal. Atria Left atrium is mildly dilated. Right atrium is mildly dilated. There is no Doppler evidence of interatrial shunt. Aortic Valve The aortic valve is mildly thickened. Mild aortic regurgitation. There is no aortic valvular stenosis. Mitral Valve The mitral valve leaflets are mildly thickened. Moderate mitral regurgitation is present. The MR jet is eccentric and posteriorly directed. No evidence of mitral valve stenosis. Tricuspid Valve Tricuspid valve is grossly normal in structure and function. Mild tricuspid regurgitation. RVSP is 40-45 mmHg. Pulmonic Valve The pulmonary valve is normal in structure. Mild pulmonic regurgitation. Great Vessels The aortic root is normal in size. IVC is normal in size and collapses >50% with inspiration. Pericardium There is no pericardial effusion. Other Information Study Quality: Technically Difficult Conclusion Technically difficult study. Normal biventricular systolic function. Mild to moderate RV dilation. Biatrial dilation. Moderate MR (eccentric posterior jet). Mild AI, mild TR, mild PI. Elevated RVSP is 40-45 mmHg. Electronically signed by : Kristin Anderson MD 07/22/2024 12:19:35
--- NOTE | 2024-07-22 20:12 | XR_ITS ---
PROCEDURE INFORMATION: Exam: XR Chest Exam date and time: 07/22/2024 12:45 AM Age: 83 years old Clinical indication: Shortness of breath TECHNIQUE: Imaging protocol: Radiologic exam of the chest. Views: 1 view. COMPARISON: CR XR CHEST PORTABLE 07/21/2024 3:06 PM FINDINGS: Lungs: COPD. Granulomatous change. No superimposed pneumonia. Pleural spaces: Unremarkable. No pleural effusion. No pneumothorax. Heart/Mediastinum: Unremarkable. No cardiomegaly. Bones/joints: Unremarkable. IMPRESSION: COPD. Granulomatous change. No superimposed pneumonia.
[2024-07-22] MEDS: ATORVASTATIN 40MG TABLET 40 MG PO (20:30)
--- NOTE | 2024-07-22 22:05 | P.PN_ITS ---
Subjective *Date: 07/22/24 *Time: 22:05 Interval history: Patient looks and feels a lot better today. Ready for [facility]. No acute concerns. Family at bedside, discussed findings and agree with plan. Exam Data for Last 24 hours Vital signs and Labs for Last 24 Hours: Temp Pulse Resp BP Pulse Ox O2 Del Method O2 Flow Rate 98.0 F 81 16 169/81 H 94 L Nasal Cannula 3 07/22/24 20:00 07/22/24 20:00 07/22/24 20:00 07/22/24 20:00 07/22/24 20:00 07/22/24 21:00 07/22/24 21:00 FiO2 28 07/21/24 23:20 Laboratory Results - last 24 hr 07/21/24 01:00: Urine Color Yellow, Urine Appearance Slightly cloudy, Urine pH 6.5, Ur Specific Boring 1.015, Urine Protein 1+ A, Urine Glucose (UA) Negative, Urine Ketones 2+, Urine Blood 1+ A, Urine Nitrate Negative, Urine Bilirubin Negative, Urine Urobilinogen 0.2, Ur Leukocyte Esterase Negative, Urine RBC 5-1 0, Urine WBC Occasional, Ur Squamous Epith Cells 10-20, Urine Bacteria Trace 07/22/24 06:08: Ferritin 82.8, Vitamin B12 375, Folate 8.71 07/22/24 13:31: Activated Clotting Time 284 H* 07/22/24 15:26: WBC 9.5, RBC 3.53 L, Hgb 10.5 L, Hct 31.8 L, MCV 90.1, MCH 29.7, MCHC 33.0, RDW 13.5, Plt Count 222 D, MPV 11.5 H, Neut % (Auto) 82.8 H, Lymph % (Auto) 6.7 L, [place] % (Auto) 9.9 H, Eos % (Auto) 0.0 L, Baso % (Auto) 0.3, Neut # (Auto) 7.9 H, Lymph # (Auto) 0.6 L, [place] # (Auto) 0.9, Eos # (Auto) 0.0, Baso # (Auto) 0.0, Sodium 139, Potassium 3.5, Chloride 102, Carbon Dioxide 30, Anion Gap 10.5, BUN 17 D, Creatinine 0.80 D, Estimated Creat Clear 27, Estimated GFR 68, Est GFR ( Amer) 83 D, Glucose 98, Calcium 8.9, Magnesium 2.3 D, Total Bilirubin 0.6, AST 58 H D, ALT 18, Alkaline Phosphatase 69, Total Protein 6.5, Albumin 4.3, Globulin 2.2, Albumin/Globulin Ratio 2.0 H Temp Pulse Resp BP Pulse Ox O2 Del Method O2 Flow Rate 97.9 F 87 18 163/81 H 91 L Nasal Cannula 2 07/22/24 04:00 07/22/24 05:57 07/22/24 04:00 07/22/24 04:00 07/22/24 05:57 07/22/24 08:58 07/22/24 08:58 FiO2 28 07/21/24 23:20 Laboratory Results - last 24 hr 07/21/24 01:00: Urine Color Yellow, Urine Appearance Slightly cloudy, Urine pH 6.5, Ur Specific Boring 1.015, Urine Protein 1+ A, Urine Glucose (UA) Negative, Urine Ketones 2+, Urine Blood 1+ A, Urine Nitrate Negative, Urine Bilirubin Negative, Urine Urobilinogen 0.2, Ur Leukocyte Esterase Negative, Urine RBC 5- 10, Urine WBC Occasional, Ur Squamous Epith Cells 10-20, Urine Bacteria Trace 07/21/24 14:59: VBG pH 7.43 H, VBG pCO2 36.2, VBG pO2 88.6 H, VBG HCO3 23.5, VBG Total CO2 24.7, VBG O2 Saturation 96.9 H, VBG Base Excess -0.8, VBG Lactic Acid 1.5 07/21/24 15:00: WBC 7.9, RBC 4.02 L, Hgb 11.8 L, Hct 35.8 L, MCV 89.1, MCH 29.4, MCHC 33.0, RDW 13.0, Plt Count 166, MPV 11.9 H, Neut % (Auto) 93.3 H, Lymph % (Auto) 4.5 L, [place] % (Auto) 1.1 L, Eos % (Auto) 0.0 L, Baso % (Auto) 0.8, Neut # (Auto) 7.4, Lymph # (Auto) 0.4 L, [place] # (Auto) 0.1, Eos # (Auto) 0.0, Baso # (Auto) 0.1, Total Counted 100, Neutrophils % (Manual) 92 H, Lymphocytes % (Manual) 7 L, Monocytes % (Manual) 1 L, Platelet Estimate Normal, RBC Morphology Normal, Sodium 136, Potassium 3.6, Chloride 99, Carbon Dioxide 24, Anion Gap 16.6 H, BUN 12, Creatinine 0.60, Estimated Creat Clear 27, Estimated GFR 95, Est GFR ( Amer) 115, Glucose 140 H, Hemoglobin A1c 5.1, Calcium 9.2, Magnesium 1.8, Total Bilirubin 0.9, AST 28, ALT 15, Alkaline Phosphatase 84, Troponin I 0.10 H, NT-Pro-B Natriuret Pep 1560 H, Total Protein 7.0, Albumin 4.5, Globulin 2.5, Albumin/Globulin Ratio 1.8, Triglycerides 76, Cholesterol 204 H, LDL Cholesterol Direct 65.48 L, VLDL Cholesterol 15, HDL Cholesterol 101 H, Cholesterol/HDL Ratio 2.0, Procalcitonin 0.186, TSH 0.47, Free T4 1.82 07/21/24 18:05: Troponin I 0.12 H 07/21/24 18:45: Chlamy pneumoniae PCR Not detected, Adenovirus (PCR) Not detected, B. pertussis DNA (PCR) Not detected, Coronavirus OC43 (PCR) Not detected, Coronavirus HKU1 (PCR) Not detected, Coronavirus 229E (PCR) Not detected, SARS-CoV-2 (PCR) Not detected, Coronavirus NL63 (PCR) Not detected, Human Metapneumovir PCR Not detected, Influenza A (H1) PCR Not detected, Influ A (H1N1/09) PCR Not detected, Influenza A (H3) PCR Not detected, Influenza Type A (PCR) Not detected, Influenza Type B (PCR) Not detected, M. pneumoniae (PCR) Not detected, Parainfluenza 1 (PCR) Not detected, Parainfluenza 2 (PCR) Not detected, Parainfluenza 3 (PCR) Not detected, Parainfluenza 4 (PCR) Not detected, RSV (PCR) Not detected, Entero/Rhino (PCR) Not detected 07/22/24 06:08: Vitamin B12 375, Folate 8.71 I & O for Last 24 hours: Intake & Output 04/18/25 04/19/25 04/20/25 04/21/25 23:59 23:59 23:59 23:59 Intake Total 240 / 480 480 / 480 Output Total 405 / 405 Balance 240 / 450 75 / 75 Weight 40.965 kg 40.511 kg Intake & Output 07/19/24 07/20/24 07/21/24 07/22/24 11:59 11:59 11:59 11:59 Intake Total 480 / 480 Output Total 305 / 305 Balance 175 / 175 Weight 89 lb 5 oz Constitutional Constitutional: mild distress, cachectic and chronically ill appearing *Routine Respiratory Exam Respiratory: Present decreased breath sounds; Absent rales or wheezes *Routine Cardiovascular Exam Cardiovascular: Present RRR; Absent murmur, gallop or rubs *Routine Extremities Exam Extremities: Absent edema Assessment and Plan *Assessment and plan (1) NSTEMI (non-ST elevated myocardial infarction): Status: Acute Category: Medical Code(s): I21.4 - Non-ST elevation (NSTEMI) myocardial infarction (2) COPD (chronic obstructive pulmonary disease): Status: Acute Qualifiers: COPD type: unspecified COPD Qualified Code(s): J44.9 - Chronic obstructive pulmonary disease, unspecified Category: Medical Code(s): J44.9 - Chronic obstructive pulmonary disease, unspecified Plan Juliette Reyes is a 83-year-old female with medical history significant for COPD on 2 L baseline who initially presented to [facility] for progressive generalized weakness. Patient states she has had nasal congestion over the past few days and has been taking Mucinex. Does endorse intermittent left-sided chest pain for many months, but denies shortness of breath, abdominal pain, fever/chills, cough. She states typical chest pain lasts seconds to minutes without radiation. No former cardiac history, but patient is a former smoker. Patient also had apparent elevated pressures on arrival to [facility], high-sensitivity troponin doubled from 28-59. Patient was symptom-free at this time. Dr. Dillon was contacted by ED provider at [place] who recommended transfer to our facility for suspected NSTEMI. On arrival, patient was sitting in bed eating dinner. However, she was visibly grunting which she states is normal for her. No chest pain, respiratory distress, or hypoxia. Lungs clear to auscultation bilaterally. #NSTEMI #Intermittent left-sided chest pains #Generalized weakness ? Given intermittent left-sided chest pains, and a former smoker we will treat this as an NSTEMI. ? Cardiology consulted, s/p LHC with ALYSIA x 2 to RCA. Cardiology recommended mo nitoring overnight. ? A1c 5.1, LDL 65, TSH normal. ? Continue aspirin 81 mg, Plavix 75 mg, atorvastatin 40 mg, metoprolol succinate 25 mg. ? Follow-up ECHO. ? Continuous cardiac telemetry. ? PT/OT consulted, pending recommendations. Follow-up UA, folate, B12, iron studies. #Elevated BNP ? BNP 1560, no signs of volume overload. Likely chronic heart disease. ? Follow-up ECHO. #COPD ? At baseline, grunting is baseline per patient. On 2.5 L. ? DuoNebs every 6 hours scheduled. Full code DVT prophylaxis: Lovenox 30 mg
[2024-07-23] VITALS (10 sets, daily range): BP systolic 123–181; BP diastolic 68–96; PULSE 53–110; RESP 18–23; TEMP 36.6–36.9; O2SAT 93–99; BMI 15.2
--- NOTE | 2024-07-23 00:46 | PC.NURSE ---
Addendum entered by Krupa Naqvi RN 07/23/24 03:46: Hematoma was assessed at this time. Size/spreading is unchanged within the marked border. Patient denies further tenderness. Original Note: A new, large purple bruise was noted to have formed in the patient's right antecubital area around 00:30; this bruising was not present earlier this shift. Charge nurse (Nico Renteria RN) was made aware and came to the bedside to assess the patient as well. The patient stated that there is some mild tenderness in her antecubital. Skin temperature of the right upper extremity is consistently warm throughout. Pulses present (right radial, brachial, and right ulnar +2), checked by me and Nico Renteria RN. Right radial cath site remains free of bleeding and was not tender. The hematoma's border was outlined with a skin-marker for monitoring size + any spreading. Coban was used to compress the area. Ice pack application utilized; elevating right upper extremity. The patient was reminded to avoid putting pressure on her right wrist/arm; she verbalized an understanding of this. The patient does not report any other complaints at this time.
--- NOTE | 2024-07-23 04:00 | PC.NURSE ---
Patient is able to answer orientation questions correctly. However, the patient has made a few disoriented statements and exhibited some confusion this shift. She is able to be easily reoriented and redirected. She has also appeared a little anxious at times, but is easily reassured/comforted by staff; overall, she has remained quite pleasant this shift. Patient was observed to be awake for the majority of the night. She has tolerated 3 L of oxygen via nasal cannula; oxygen saturations have remained >90%. Continuous pulse ox in place. Breathing treatments administered per MAR by RTs. Other scheduled medication administered as appropriately per MAR. Patient's right radial cath site is dressed with sterile gauze/tegaerm; right radial site remains free of bleeding/drainage and pain. Hematoma in right antecubital remains compressed with Coban; ice pack at bedside. Upon auscultation of her lungs, crackles were heard in the left; diminished sounds were heard throughout. Heart and bowel sounds were within normal findings. Normal sinus rhythm on telemetry. She has required at least x1 assistance during ambulation/transfers. She utilizes the bedside commode for elimination needs. Patient has positioned herself to sit on the edge of the bed without difficulty a few times at her own leisure. Warm blankets given. At this time, the patient is sitting on the edge of the bed without any further complaints. No new needs at this time. Bed alarm on. Call light within reach.
[2024-07-23] MEDS: IPRATROPIUM/ALBUTEROL 3 ML NEB IH ×3 (05:45→23:18)
[2024-07-23 06:19] LABS: Basophils # 0.1 K/mm3 (0-0.2); Basophils % 0.8 % (0.1-2.0); Eosinophils % 0.3 % (0.1-12.0); Hemoglobin 10.9 g/dL (12.2-16.2); Lymphocytes # 0.8 K/mm3 (0.7-4.5); Lymphocytes % 8.1 % (10-50); Mean Corpuscular Hemoglobin 29.6 pg (27.0-31.2); Mean Corpuscular Volume 89.7 fl (81-99); Mean Platelet Volume 11.7 fl (7.4-10.4); Monocytes # 0.9 K/mm3 (0.1-1.0); Monocytes % 9.6 % (1.7-9.3); Neutrophils # 7.7 K/mm3 (1.8-7.8); Neutrophils % 80.9 % (37.0-80.0); Nucleated Red Blood Cells # 0 10^3/uL; Nucleated Red Blood Cells % 0 %; Platelet Count 252 K/mm3 (142-424); Red Blood Count 3.68 M/mm3 (4.20-5.40); Red Cell Distribution Width 13.4 % (11.5-17.5); Red Cell Distribution Width-SD 44.2 fL; White Blood Count 9.5 K/mm3 (4.8-10.8)
[2024-07-23 06:26] LABS: Chloride 103 mmol/L (98-107); Potassium 3.7 mmoL/L (3.5-5.1); Sodium 140 mmol/L (136-145)
[2024-07-23 06:29] LABS: Anion Gap 10.7 mEq/L (5-15); Blood Urea Nitrogen 14 mg/dl (7-17); Calcium 9.3 mg/dl (8.4-10.2); Carbon Dioxide 30 mmol/L (22.0-30.0); Creatinine Clearance Estimated 27 mL/min (50-200); Estimated Glomerular Filt Rate 80 ml/min (>60); GFR (African American) 96 ML/MIN (>60); Glucose 76 mg/dl (74-100)
[2024-07-23] MEDS: FUROSEMIDE 40 MG TABLET PO (08:30)
[2024-07-23] MEDS: CLOPIDOGREL 75MG TAB 75 MG PO (08:30)
[2024-07-23] MEDS: METOPROLOL SUCCINATE XL 50MG TABLET 50 MG PO (08:30)
[2024-07-23] MEDS: ASPIRIN EC 81MG TABLET 81 MG PO (08:30)
--- NOTE | 2024-07-23 08:54 | EXP.CARD.PN ---
Subjective Subjective Date: 07/23/24 Time: 08:54 Principal diagnosis: NSTEMI Interval history: 83-year-old white female in bed with supplemental oxygen. Patient does use accessory muscles to breathe but apparently this is close to her baseline. She denies any chest pain, pressure or tightness. Hematoma noted in the right elbow area post cath. The radial access site bandage was removed and appears to be healing well with no hematoma. Patient relates she only takes a portion of the Lasix 20 mg tablet at home every other day due to significant urination. Blood pressure is elevated and heart rate remains elevated despite starting metoprolol yesterday. Will increase the dose today. Patient did receive coronary stents to the right coronary artery yesterday. She has mild to moderate disease of the remaining vessels. Abdominal aortic ultrasound showed a 6 cm AAA. She has been referred to vascular surgery in [place] (Dr. Sheridan) Exam Data for Last 24 hours Vital signs and Labs for Last 24 Hours: Temp Pulse Resp BP Pulse Ox O2 Del Method O2 Flow Rate 98.3 F 102 H 23 123/74 95 Nasal Cannula 3 07/23/24 08:00 07/23/24 08:00 07/23/24 08:00 07/23/24 08:00 07/23/24 08:00 07/23/24 08:00 07/23/24 08:00 FiO2 28 07/21/24 23:20 Laboratory Results - last 24 hr 07/22/24 06:08: Ferritin 82.8, Folate 8.71 07/22/24 13:31: Activated Clotting Time 284 H* 07/22/24 15:26: WBC 9.5, RBC 3.53 L, Hgb 10.5 L, Hct 31.8 L, MCV 90.1, MCH 29.7, MCHC 33.0, RDW 13.5, Plt Count 222 D, MPV 11.5 H, Neut % (Auto) 82.8 H, Lymph % (Auto) 6.7 L, Marshall % (Auto) 9.9 H, Eos % (Auto) 0.0 L, Baso % (Auto) 0.3, Neut # (Auto) 7.9 H, Lymph # (Auto) 0.6 L, Marshall # (Auto) 0.9, Eos # (Auto) 0.0, Baso # (Auto) 0.0, Sodium 139, Potassium 3.5, Chloride 102, Carbon Dioxide 30, Anion Gap 10.5, BUN 17 D, Creatinine 0.80 D, Estimated Creat Clear 27, Estimated GFR 68, Est GFR ( Amer) 83 D, Glucose 98, Calcium 8.9, Magnesium 2.3 D, Total Bilirubin 0.6, AST 58 H D, ALT 18, Alkaline Phosphatase 69, Total Protein 6.5, Albumin 4.3, Globulin 2.2, Albumin/Globulin Ratio 2.0 H 07/23/24 05:42: WBC 9.5, RBC 3.68 L, Hgb 10.9 L, Hct 33.0 L, MCV 89.7, MCH 29.6, MCHC 33.0, RDW 13.4, Plt Count 252, MPV 11.7 H, Neut % (Auto) 80.9 H, Lymph % (Auto) 8.1 L, Marshall % (Auto) 9.6 H, Eos % (Auto) 0.3, Baso % (Auto) 0.8, Neut # (Auto) 7.7, Lymph # (Auto) 0.8, Marshall # (Auto) 0.9, Eos # (Auto) 0.0, Baso # (Auto) 0.1, Sodium 140, Potassium 3.7, Chloride 103, Carbon Dioxide 30, Anion Gap 10.7, BUN 14, Creatinine 0.70, Estimated Creat Clear 27, Estimated GFR 80, Est GFR ( Amer) 96, Glucose 76 D, Calcium 9.3 I & O for Last 24 hours: Intake & Output 07/20/24 07/21/24 07/22/24 07/23/24 11:59 11:59 11:59 11:59 Intake Total 480 / 480 340 / 340 Output Total 305 / 305 300 / 300 Balance 175 / 175 40 / 40 Weight 89 lb 5 oz 89 lb 4.983 oz Constitutional Constitutional: mild distress *Routine Respiratory Exam Respiratory: Present decreased breath sounds and crackles; Absent wheezes *Routine Cardiovascular Exam Cardiovascular: Present RRR; Absent murmur, gallop or rubs Progress Note: A&P Assessment and plan (1) NSTEMI (non-ST elevated myocardial infarction): Status: Acute (2) COPD (chronic obstructive pulmonary disease): Status: Acute Assessment and Plan Assessment and Plan for All Diagnoses:: 1. NSTEMI -2 ALYSIA to RCA yesterday -on ASA and plavix 2. Elevated BNP with no chest x-ray evidence of CHF -will give a dose of lasix today 3. Hypertension -Continue metoprolol but increase dose to 50 mg daily 4. LDL 65 with HDL of 101 -start atorvastatin 40 mg daily 5. Mild anemia with hemoglobin 11.8 -Continue to monitor 6. Ex-smoker with COPD, oxygen requiring -Continue oxygen 7. History of abdominal aortic aneurysm -6 cm on ultrasound Increase metoprolol succinate to 50 mg daily Single dose of Lasix 40 mg today Patient noted to drop her oxygen saturation into the low 80s of despite wearing oxygen yesterday. Defer to Dr. Martinez for further treatment Home medication recommendations if discharged: Aspirin 81 mg daily Plavix 75 mg daily Metoprolol succinate 50 mg daily Lasix 20 mg every other day Atorvastatin 40 mg daily Follow-up in our office in 1 week.
--- NOTE | 2024-07-23 11:27 | P.DS_ITS ---
General Admission date:: 07/21/24 HPI HPI HPI: Juliette Reyes is a 83-year-old female with medical history significant for COPD on 2 L baseline who initially presented to [facility] for progressive generalized weakness. Patient states she has had nasal congestion over the past few days and has been taking Mucinex. Does endorse intermittent left-sided chest pain for many months, but denies shortness of breath, abdominal pain, fever/chills, cough. She states typical chest pain lasts seconds to minutes without radiation. No former cardiac history, but patient is a former smoker. Patient also had apparent elevated pressures on arrival to [facility], high-sensitivity troponin doubled from 28-59. Patient was symptom-free at this time. Dr. Dillon was contacted by ED provider at [place] who recommended transfer to our facility for suspected NSTEMI. On arrival, patient was sitting in bed eating dinner. However, she was visibly grunting which she states is normal for her. No chest pain, respiratory distress, or hypoxia. Lungs clear to auscultation bilaterally. Exam Data for Last 24 hours Vital signs and Labs for Last 24 Hours: Temp Pulse Resp BP Pulse Ox O2 Del Method O2 Flow Rate 98.3 F 102 H 23 123/74 95 Nasal Cannula 3 07/23/24 08:00 07/23/24 08:00 07/23/24 08:00 07/23/24 08:00 07/23/24 08:00 07/23/24 09:00 07/23/24 09:00 FiO2 28 07/21/24 23:20 Laboratory Results - last 24 hr 07/22/24 06:08: Ferritin 82.8 07/22/24 13:31: Activated Clotting Time 284 H* 07/22/24 15:26: WBC 9.5, RBC 3.53 L, Hgb 10.5 L, Hct 31.8 L, MCV 90.1, MCH 29.7, MCHC 33.0, RDW 13.5, Plt Count 222 D, MPV 11.5 H, Neut % (Auto) 82.8 H, Lymph % (Auto) 6.7 L, [place] % (Auto) 9.9 H, Eos % (Auto) 0.0 L, Baso % (Auto) 0.3, Neut # (Auto) 7.9 H, Lymph # (Auto) 0.6 L, [place] # (Auto) 0.9, Eos # (Auto) 0.0, Baso # (Auto) 0.0, Sodium 139, Potassium 3.5, Chloride 102, Carbon Dioxide 30, Anion Gap 10.5, BUN 17 D, Creatinine 0.80 D, Estimated Creat Clear 27, Estimated GFR 68, Est GFR ( Amer) 83 D, Glucose 98, Calcium 8.9, Magnesium 2.3 D, Total Bilirubin 0.6, AST 58 H D, ALT 18, Alkaline Phosphatase 69, Total Protein 6.5, Albumin 4.3, Globulin 2.2, Albumin/Globulin Ratio 2.0 H 07/23/24 05:42: WBC 9.5, RBC 3.68 L, Hgb 10.9 L, Hct 33.0 L, MCV 89.7, MCH 29.6, MCHC 33.0, RDW 13.4, Plt Count 252, MPV 11.7 H, Neut % (Auto) 80.9 H, Lymph % (Auto) 8.1 L, [place] % (Auto) 9.6 H, Eos % (Auto) 0.3, Baso % (Auto) 0.8, Neut # (Auto) 7.7, Lymph # (Auto) 0.8, [place] # (Auto) 0.9, Eos # (Auto) 0.0, Baso # (Auto) 0.1, Sodium 140, Potassium 3.7, Chloride 103, Carbon Dioxide 30, Anion Gap 10.7, BUN 14, Creatinine 0.70, Estimated Creat Clear 27, Estimated GFR 80, Est GFR ( Amer) 96, Glucose 76 D, Calcium 9.3 I & O for Last 24 hours: Intake & Output 07/20/24 07/21/24 07/22/24 07/23/24 23:59 23:59 23:59 23:59 Intake Total 240 / 480 480 / 580 100 / 100 Output Total 605 / 605 225 / 225 Balance 240 / 450 -125 / -25 -125 / -125 Weight 40.965 kg 40.511 kg 40.511 kg Results Data Completed and Pending Labs on day of discharge: Labs from last 24 hours 07/23/24 07/22/24 07/22/24 05:42 15:26 13:31 WBC 9.5 9.5 RBC 3.68 L 3.53 L Hgb 10.9 L 10.5 L Hct 33.0 L 31.8 L MCV 89.7 90.1 MCH 29.6 29.7 MCHC 33.0 33.0 RDW 13.4 13.5 Plt Count 252 222 D MPV 11.7 H 11.5 H Neut % (Auto) 80.9 H 82.8 H Lymph % (Auto) 8.1 L 6.7 L [place] % (Auto) 9.6 H 9.9 H Eos % (Auto) 0.3 0.0 L Baso % (Auto) 0.8 0.3 Neut # (Auto) 7.7 7.9 H Lymph # (Auto) 0.8 0.6 L [place]imble # (Auto) 0.9 0.9 Eos # (Auto) 0.0 0.0 Baso # (Auto) 0.1 0.0 Activated Clotting Time 284 H* Sodium 140 139 Potassium 3.7 3.5 Chloride 103 102 Carbon Dioxide 30 30 Anion Gap 10.7 10.5 BUN 14 17 D Creatinine 0.70 0.80 D Estimated Creat Clear 27 27 Estimated GFR 80 68 Est GFR ( Amer) 96 83 D Glucose 76 D 98 Calcium 9.3 8.9 Magnesium 2.3 D Ferritin Total Bilirubin 0.6 AST 58 H D ALT 18 Alkaline Phosphatase 69 Total Protein 6.5 Albumin 4.3 Globulin 2.2 Albumin/Globulin Ratio 2.0 H 07/22/24 06:08 WBC RBC Hgb Hct MCV MCH MCHC RDW Plt Count MPV Neut % (Auto) Lymph % (Auto) [place] % (Auto) Eos % (Auto) Baso % (Auto) Neut # (Auto) Lymph # (Auto) Trimble # (Auto) Eos # (Auto) Baso # (Auto) Activated Clotting Time Sodium Potassium Chloride Carbon Dioxide Anion Gap BUN Creatinine Estimated Creat Clear Estimated GFR Est GFR ( Amer) Glucose Calcium Magnesium Ferritin 82.8 Total Bilirubin AST ALT Alkaline Phosphatase Total Protein Albumin Globulin Albumin/Globulin Ratio DS: Diagnosis Discharge Diagnosis (1) NSTEMI (non-ST elevated myocardial infarction): Status: Acute Code(s): I21.4 - Non-ST elevation (NSTEMI) myocardial infarction (2) COPD (chronic obstructive pulmonary disease): Status: Acute Code(s): J44.9 - Chronic obstructive pulmonary disease, unspecified Qualifiers: COPD type: unspecified COPD Qualified Code(s): J44.9 - Chronic obstructive pulmonary disease, unspecified Meds Home Medications and Allergies Home Medications ?Medication ?Instructions ?Recorded ?Confirmed ?Type aspirin 81 mg tablet,delayed 81 mg PO DAILY 30 days #30 tabs 07/23/24 Rx release atorvastatin 40 mg tablet 40 mg PO HS 30 days #30 tabs 07/23/24 Rx clopidogrel 75 mg tablet 75 mg PO DAILY 30 days #30 tabs 07/23/24 Rx furosemide 40 mg tablet 20 mg (1/2 x 40 mg) PO Q48H 30 07/23/24 07/22/24 Rx days #0 tabs metoprolol succinate 50 mg 50 mg PO DAILY 30 days #30 tabs 07/23/24 Rx tablet,extended release 24 hr (Toprol XL) New Prescriptions to Start Prescriptions: gentry Martinez,Denis atorvastatin Juan,Denis clopidogrel Juan,Denis metoprolol succinate [Toprol XL] Denis Martinez Allergies Allergy/AdvReac Type Severity Reaction Status Date / Time amoxicillin (From Augmentin) Allergy Rash Verified 07/21/24 15:15 cefaclor (From Ceclor) Allergy Rash Verified 07/21/24 15:15 clavulanic acid (From Allergy Rash Verified 07/21/24 15:15 Augmentin) hydrocodone Allergy Unknown Verified 07/21/24 15:15 allergy reaction nitrofurantoin (From Allergy Rash Verified 07/21/24 15:15 Macrobid) omeprazole (From Prilosec) Allergy Unknown Verified 07/21/24 15:15 allergy reaction oxaprozin (From Daypro) Allergy Rash Verified 07/21/24 15:15 sulfamethoxazole (From Allergy Rash Verified 07/21/24 15:15 Bactrim) trimethoprim (From Bactrim) Allergy Rash Verified 07/21/24 15:15 Discharge Plan Disposition Patient Disposition: Home, Self-Care Condition: Fair Discharge Order Discharge Orders: Discharge Order (Routine); Ordered 07/23/24 Ordered By: Denis Martinez Follow up Plan Follow up with: Honey Rose [Primary Care Provider] - 07/30/24 8:45 am Prescriptions/Medication Reconciliation: New atorvastatin 40 mg Tablet 40 mg PO HS 30 Days Qty: 30 0RF metoprolol succinate [Toprol XL] 50 mg Tablet Extended Release 24 Hr 50 mg PO DAILY 30 Days Qty: 30 0RF clopidogrel 75 mg Tablet 75 mg PO DAILY 30 Days Qty: 30 0RF aspirin 81 mg Tablet,Delayed Release (Dr/Ec) 81 mg PO DAILY 30 Days Qty: 30 0RF Changed furosemide 40 mg tablet 20 mg PO Q48H 30 Days Qty: 0 0RF Discontinued bisoprolol fumarate 5 mg tablet 2.5 mg PO DAILY Problem Reconciliation Problems Reviewed?: Yes Patient Discharge Instructions Patient Instructions: DI for Heart Attack, Chronic Obstructive Pulmonary Disease, DI for Chronic Obstructive Pulmonary Disease, DI for Cardiac Catheterization, DI for Surgical Site Infection, Stop Light COPD Print Language: Danish Providers Primary Care Provider: Honey Rose Admit Provider: Denis Martinez Attending Provider: Denis Martinez
--- NOTE | 2024-07-23 11:56 | CT_ITS ---
FINAL REPORT TECHNIQUE: Postcontrast axial images of the chest were performed in a CTA protocol. This study was performed with techniques to keep radiation doses as low as reasonably achievable, (ALARA). Individualized dose reduction technique using automated exposure control or adjustment of mA and/or kV according to the patient's size were employed. CLINICAL HISTORY: hypoxia with exertion FINDINGS: The heart is normal in size. No adenopathy is identified. No pleural or pericardial effusion is identified. There is a partially visualized abdominal aortic aneurysm measuring up to 4.1 cm in diameter. There is no filling defect to suggest pulmonary embolism. No lung infiltrate or mass is identified. There are moderate changes of centrilobular emphysema. Calcified granulomas are seen in the right perihilar region at the left lung base. The images of the upper abdomen demonstrate a large calcified stone in the right renal collecting system measuring 1.6 cm. IMPRESSION: No evidence for PE on this exam. Partially visualized abdominal aortic aneurysm measuring up to 4.1 cm. Large right renal stone. Moderate centrilobular emphysema. Reviewed, Interpreted and Dictated by Kelvin Solares MD Transcribed by Zoe Grewal Authenticated and [facility]
--- NOTE | 2024-07-23 11:58 | SW/DCPLANNER ---
Addendum entered by Elizabeth Posey 07/23/24 12:22: [facility] accept patient. Cherelle Santana Original Note: Spoke with patient about once medically stable for discharge if she would be interested in home health services. Patient stated that she feels that it would benefit her and that she has no preference of the agencies where i sent her information to. I sent her information to [facility] and will update once i hear back if they can accept or not. Cherelle Santana
[2024-07-23] MEDS: 0.9 % SODIUM CHLORIDE 50 ML VIAL IV (13:31)
[2024-07-23] MEDS: IOPAMIDOL-370 (76%);100ML BOTTLE 70 ML IV (13:31)
[2024-07-23] MEDS: SODIUM CHLORIDE 0.9% 10ML SYR (RAD ONLY) 10 ML IV (13:31)
--- NOTE | 2024-07-23 15:05 | PC.NURSE ---
Pt has had multiple desats when getting up to ambulate to bedside commode at one point pt O2 dropped to 75% on 3L but O2 went back up to the 90s with a period of rest. Pt has also been requiring assist x2 with moving to bedside commode because of weakness. Pt has also had multiple incontinent episodes this shift. Purewick has been placed due to weakness and allowing the pt to rest since more lasix has been given. Will continue to monitor.
[2024-07-23] MEDS: FUROSEMIDE 40MG/4ML VIAL 40 MG IV (15:14)
[2024-07-23 15:27] LABS: Magnesium 1.8 mg/dl (1.6-2.3)
[2024-07-23] MEDS: ATORVASTATIN 40MG TABLET 40 MG PO (20:25)
--- NOTE | 2024-07-23 22:11 | P.PN_ITS ---
Subjective *Date: 07/23/24 *Time: 22:11 Interval history: Patient states she is feeling better today, however desaturating to 75% on home O2. Started IV Lasix diuresis, follow-up on response tomorrow. Exam Data for Last 24 hours Vital signs and Labs for Last 24 Hours: Temp Pulse Resp BP Pulse Ox O2 Del Method O2 Flow Rate 97.8 F 100 H 21 164/87 H 97 Nasal Cannula 3 07/23/24 16:00 07/23/24 20:00 07/23/24 16:00 07/23/24 16:00 07/23/24 16:00 07/23/24 19:00 07/23/24 19:00 FiO2 32 07/23/24 19:00 Laboratory Results - last 24 hr 07/23/24 05:42: WBC 9.5, RBC 3.68 L, Hgb 10.9 L, Hct 33.0 L, MCV 89.7, MCH 29.6, MCHC 33.0, RDW 13.4, Plt Count 252, MPV 11.7 H, Neut % (Auto) 80.9 H, Lymph % (Auto) 8.1 L, Spink % (Auto) 9.6 H, Eos % (Auto) 0.3, Baso % (Auto) 0.8, Neut # (Auto) 7.7, Lymph # (Auto) 0.8, Spink # (Auto) 0.9, Eos # (Auto) 0.0, Baso # (Auto) 0.1, Sodium 140, Potassium 3.7, Chloride 103, Carbon Dioxide 30, Anion Gap 10.7, BUN 14, Creatinine 0.70, Estimated Creat Clear 27, Estimated GFR 80, Est GFR ( Amer) 96, Glucose 76 D, Calcium 9.3 07/23/24 15:12: Magnesium 1.8 D I & O for Last 24 hours: Intake & Output 07/20/24 07/21/24 07/22/24 07/23/24 23:59 23:59 23:59 23:59 Intake Total 240 / 480 480 / 580 730 / 730 Output Total 605 / 605 1125 / 1125 Balance 240 / 450 -125 / -25 -395 / -395 Weight 40.965 kg 40.511 kg 40.511 kg Constitutional Constitutional: no acute distress *Routine HEENT Exam Head: Present normocephalic Eye: Present EOMI and PERRL ENT: Present mucous membranes moist *Routine Neck Exam Neck: Present supple; Absent lymphadenopathy *Routine Respiratory Exam Respiratory: Present CTA bilaterally *Routine Cardiovascular Exam Cardiovascular: Present RRR *Routine Abdominal Exam Abdominal: Present soft and normoactive bowel sounds; Absent tenderness *Routine Extremities Exam Extremities: Absent cyanosis, clubbing or edema *Routine Skin Exam Skin: Present warm; Absent rash *Routine Neurological Exam Neurological: Present alert and oriented X3 Assessment and Plan *Assessment and plan (1) NSTEMI (non-ST elevated myocardial infarction): Status: Acute Category: Medical Code(s): I21.4 - Non-ST elevation (NSTEMI) myocardial infarction (2) COPD (chronic obstructive pulmonary disease): Status: Acute Qualifiers: COPD type: unspecified COPD Qualified Code(s): J44.9 - Chronic obstructive pulmonary disease, unspecified Category: Medical Code(s): J44.9 - Chronic obstructive pulmonary disease, unspecified Plan Juliette Reyes is a 83-year-old female with medical history significant for COPD on 2 L baseline who initially presented to [facility] for progressive generalized weakness. Patient states she has had nasal congestion over the past few days and has been taking Mucinex. Does endorse intermittent left-sided chest pain for many months, but denies shortness of breath, abdominal pain, fever/chills, cough. She states typical chest pain lasts seconds to minutes without radiation. No former cardiac history, but patient is a former smoker. Patient also had apparent elevated pressures on arrival to [facility], high-sensitivity troponin doubled from 28-59. Patient was symptom-free at this time. Dr. Dillon was contacted by ED provider at [place] who recommended transfer to our facility for suspected NSTEMI. On arrival, patient was sitting in bed eating dinner. However, she was visibly grunting which she states is normal for her. No chest pain, respiratory distress, or hypoxia. Lungs clear to auscultation bilaterally. #NSTEMI #Intermittent left-sided chest pains #Generalized weakness #Elevated BNP #COPD #Exercise intolerance ? Given intermittent left-sided chest pains, and a former smoker we will treat this as an NSTEMI. ? Cardiology consulted, s/p LHC with ALYSIA x 2 to RCA. Patient states she feels much better today. ? However, patient is having exercise intolerance and desaturation to 75% on 3 to 4 L with ambulation today. CTA chest without acute remarkable findings. Given elevated LVEDP, started IV Lasix diuresis. However, I do suspect that exercise intolerance and desaturations are more related to advanced emphysema and chronic in nature. ? A1c 5.1, LDL 65, TSH normal. ? ECHO reveals moderate RV dilatation, elevated LVEDP. ? Continue aspirin 81 mg, Plavix 75 mg, atorvastatin 40 mg, metoprolol succinate 25 mg. ? Started IV Lasix 40 mg daily. Follow-up renal function. ? Continuous cardiac telemetry. ? PT/OT consulted, recommending home health. UA, folate, B12, iron studies unremarkable. ? DuoNebs every 6 hours scheduled. Full code DVT prophylaxis: Lovenox 30 mg
[2024-07-24] VITALS (8 sets, daily range): BP systolic 113–120; BP diastolic 57–78; PULSE 80–110; RESP 18–22; TEMP 36.4–36.8; O2SAT 94–100; BMI 13.8
--- NOTE | 2024-07-24 04:40 | PC.NURSE ---
Patient remains pleasantly disoriented but oriented at times. She is still easily reoriented and redirected. Her niece visited her yesterday evening and later departed at bedtime. Patient was observed to have both wakeful periods and resting periods (eyes closed, respirations even/unlabored) throughout the night. She remains tolerating 3 L of oxygen via nasal cannula; oxygen saturations >90%. Continuous pulse ox in place. Breathing treatments administered per JUN by RTs. She has not had any complaints of shortness of breath this shift. Scheduled medication administered as appropriately per JUN. Right radial cath site remains free of bleeding/drainage and pain. Hematoma in right antecubital remains unchanged from previous assembler 1st shift. Auscultation of heart, lungs, and bowel sounds remain unchanged from previous assembler 1st shift findings. Sinus tachycardia on telemetry this shift. She continues to require at least x1 assistance during ambulation/transfers. Purewick and brief in place for elimination needs. Urine output documented accordingly. Patient has self-turned in bed without difficulty. At this time, the patient is resting in bed without any further complaints. No new needs at this time. Bed alarm on. Call light within reach.
[2024-07-24] MEDS: IPRATROPIUM/ALBUTEROL 3 ML NEB IH ×2 (06:15→11:05)
[2024-07-24 06:21] LABS: Basophils # 0.1 K/mm3 (0-0.2); Basophils % 0.8 % (0.1-2.0); Eosinophils % 0.4 % (0.1-12.0); Hematocrit 33.2 % (37.0-47.0); Hemoglobin 11.1 g/dL (12.2-16.2); Lymphocytes # 0.8 K/mm3 (0.7-4.5); Lymphocytes % 9.2 % (10-50); Mean Corpuscular HGB Conc 33.4 g/dL (31.8-35.4); Mean Corpuscular Hemoglobin 29.8 pg (27.0-31.2); Mean Corpuscular Volume 89.2 fl (81-99); Mean Platelet Volume 12.1 fl (7.4-10.4); Monocytes # 0.9 K/mm3 (0.1-1.0); Monocytes % 10.2 % (1.7-9.3); Neutrophils # 6.7 K/mm3 (1.8-7.8); Neutrophils % 79.2 % (37.0-80.0); Nucleated Red Blood Cells # 0 10^3/uL; Nucleated Red Blood Cells % 0 %; Platelet Count 191 K/mm3 (142-424); Red Blood Count 3.72 M/mm3 (4.20-5.40); Red Cell Distribution Width 13.3 % (11.5-17.5); Red Cell Distribution Width-SD 43.7 fL; White Blood Count 8.4 K/mm3 (4.8-10.8)
[2024-07-24 06:31] LABS: Chloride 98 mmol/L (98-107)
[2024-07-24 06:32] LABS: Albumin Level 4.5 g/dl (3.5-5.0); Potassium 3.2 mmoL/L (3.5-5.1); Sodium 140 mmol/L (136-145)
[2024-07-24 06:34] LABS: Blood Urea Nitrogen 19 mg/dl (7-17); Creatinine Clearance Estimated 24 mL/min (50-200); Estimated Glomerular Filt Rate 60 ml/min (>60); GFR (African American) 72 ML/MIN (>60)
[2024-07-24 06:35] LABS: Alanine Aminotransferase 28 U/L (12-78); Albumin/Globulin Ratio 1.8 (1.1-1.8); Alkaline Phosphatase 56 U/L (38-126); Anion Gap 9.2 mEq/L (5-15); Aspartate Amino Transferase 67 U/L (14-36); Bilirubin,Total 0.8 mg/dl (0.2-1.3); Calcium 9.1 mg/dl (8.4-10.2); Carbon Dioxide 36 mmol/L (22.0-30.0); Globulin 2.5 g/dL (1.3-3.2); Glucose 102 mg/dl (74-100)
[2024-07-24] MEDS: POTASSIUM CHLORIDE 20MEQ TAB 40 MEQ PO ×2 (08:36→14:02)
[2024-07-24] MEDS: METOPROLOL SUCCINATE XL 50MG TABLET 50 MG PO (08:36)
[2024-07-24] MEDS: FUROSEMIDE 40MG/4ML VIAL 40 MG IV (08:37)
[2024-07-24] MEDS: ASPIRIN EC 81MG TABLET 81 MG PO (08:37)
[2024-07-24] MEDS: ENOXAPARIN 30MG/0.3ML SYRINGE 30 MG SUBCUT (08:37)
[2024-07-24] MEDS: CLOPIDOGREL 75MG TAB 75 MG PO (08:37)
--- NOTE | 2024-07-24 10:49 | PC.NURSE ---
Pt called out and c/o SOB, O2 was 82%. O2 was then turned up to 4L per NC. She is now 94%. RT called for PRN breathing treatment.
--- NOTE | 2024-07-24 11:52 | EXP.DC.SUM ---
General Admission date:: 07/21/24 Discharge date: 07/24/24 HPI HPI HPI: Vannesa Reyes is a 83-year-old female with medical history significant for COPD on 2 L baseline who initially presented to [facility] for progressive generalized weakness. Patient states she has had nasal congestion over the past few days and has been taking Mucinex. Does endorse intermittent left-sided chest pain for many months, but denies shortness of breath, abdominal pain, fever/chills, cough. She states typical chest pain lasts seconds to minutes without radiation. No former cardiac history, but patient is a former smoker. Patient also had apparent elevated pressures on arrival to [facility], high-sensitivity troponin doubled from 28-59. Patient was symptom-free at this time. Dr. Dillon was contacted by ED provider at [place] who recommended transfer to our facility for suspected NSTEMI. On arrival, patient was sitting in bed eating dinner. However, she was visibly grunting which she states is normal for her. No chest pain, respiratory distress, or hypoxia. Lungs clear to auscultation bilaterally. Hospital Course Hospital Course Hospital Course: Vannesa Reyes is a 83-year-old female with medical history significant for COPD on 2 L baseline who initially presented to [facility] for progressive generalized weakness. Patient states she has had nasal congestion over the past few days and has been taking Mucinex. Does endorse intermittent left-sided chest pain for many months, but denies shortness of breath, abdominal pain, fever/chills, cough. She states typical chest pain lasts seconds to minutes without radiation. No former cardiac history, but patient is a former smoker. Patient also had apparent elevated pressures on arrival to [facility], high-sensitivity troponin doubled from 28-59. Patient was symptom-free at this time. Dr. Dillon was contacted by ED provider at [place] who recommended transfer to our facility for suspected NSTEMI. On arrival, patient was sitting in bed eating dinner. However, she was visibly grunting which she states is normal for her. No chest pain, respiratory distress, or hypoxia. Lungs clear to auscultation bilaterally. Patient treated for NSTEMI, showed improvement with medical management. Taken for left heart cath with placement of 2 stents to her RCA. Did well after procedure. Stable to discharge home on goal-directed meds. Follow-up with cardiology as an outpatient. Problems addressed as follows: #NSTEMI #Intermittent left-sided chest pains #Generalized weakness #Elevated BNP #COPD/emphysema #Exercise intolerance ? Given intermittent left-sided chest pains, and a former smoker patient was admitted as transfer for NSTEMI. Cardiology was consulted and patient was taken for left heart cath where she was found to have significant disease and received 2 drug-eluting stents to the RCA. Feeling better after her heart cath. Patient having some exercise intolerance however after procedure. Was still desatting into the 70s with ambulation. Concerned this is likely related to emphysema as she has advanced emphysema on her chest CTA. Initiated on diuresis due to elevated end-diastolic pressures on her heart cath. Also found to have moderate RV dilation on her echo. Will continue aspirin 81 mg daily, Plavix 75 mg daily, Lipitor 40 mg daily and metoprolol succinate 25 mg daily. New Lasix 20 mg every other day discharge. Therapy evaluated patient prior to discharge, recommended home health. Overall doing well. Able to wean to 2 L oxygen continuous prior to discharge. Kidney function electrolytes stable on day of discharge. Continue DuoNebs every 4 hours for emphysema as well as Trelegy 100 inhaler daily Total time spent on discharge 32 minutes in counseling, documentation, chart review, and direct care with patient. Exam Data for Last 24 hours Vital signs and Labs for Last 24 Hours: Temp Pulse Resp BP Pulse Ox O2 Del Method O2 Flow Rate 97.7 F 89 22 113/57 L 96 Nasal Cannula 2 07/24/24 08:00 07/24/24 11:05 07/24/24 08:00 07/24/24 08:00 07/24/24 11:06 07/24/24 11:06 07/24/24 11:06 FiO2 32 07/23/24 19:00 Laboratory Results - last 24 hr 07/23/24 15:12: Magnesium 1.8 D 07/24/24 05:54: WBC 8.4, RBC 3.72 L, Hgb 11.1 L, Hct 33.2 L, MCV 89.2, MCH 29.8, MCHC 33.4, RDW 13.3, Plt Count 191, MPV 12.1 H, Neut % (Auto) 79.2, Lymph % (Auto) 9.2 L, [place] % (Auto) 10.2 H, Eos % (Auto) 0.4, Baso % (Auto) 0.8, Neut # (Auto) 6.7, Lymph # (Auto) 0.8, [place] # (Auto) 0.9, Eos # (Auto) 0.0, Baso # (Auto) 0.1, Sodium 140, Potassium 3.2 L, Chloride 98, Carbon Dioxide 36 H, Anion Gap 9.2, BUN 19 H D, Creatinine 0.90 D, Estimated Creat Clear 24, Estimated GFR 60, Est GFR ( Amer) 72 D, Glucose 102 H, Calcium 9.1, Total Bilirubin 0.8, AST 67 H, ALT 28 D, Alkaline Phosphatase 56, Total Protein 7.0, Albumin 4.5, Globulin 2.5, Albumin/Globulin Ratio 1.8 I & O for Last 24 hours: Intake & Output 07/21/24 07/22/24 07/23/24 07/24/24 23:59 23:59 23:59 23:59 Intake Total 240 / 480 480 / 580 730 / 850 720 / 720 Output Total 605 / 605 1125 / 1500 375 / 375 Balance 240 / 450 -125 / -25 -395 / -650 345 / 345 Weight 40.965 kg 40.511 kg 40.511 kg 36.78 kg Constitutional Constitutional: no acute distress, cachectic, chronically ill appearing and cooperative *Routine HEENT Exam Head: Present normocephalic Eye: Present EOMI and PERRL ENT: Present mucous membranes moist *Routine Neck Exam Neck: Present supple; Absent lymphadenopathy Routine Chest/Breast/Axilla Exam Chest wall: Absent tenderness Comments: prominent ribs *Routine Respiratory Exam Respiratory: Present accessory muscle use, prolonged expiratory phase and wheezes (end expiratory); Absent crackles *Routine Cardiovascular Exam Cardiovascular: Present RRR *Routine Abdominal Exam Abdominal: Present soft and normoactive bowel sounds; Absent tenderness *Routine Rectal Exam Patient deferred: visual exam *Routine Exam Patient deferred: external exam *Routine Extremities Exam Extremities: Absent cyanosis, clubbing or edema *Routine Skin Exam Skin: Present warm; Absent rash *Routine Neurological Exam Neurological: Present alert, oriented X3 and moving all extremities; Absent altered mental status Results Data Completed and Pending Labs on day of discharge: Labs from last 24 hours 07/24/24 07/23/24 05:54 15:12 WBC 8.4 RBC 3.72 L Hgb 11.1 L Hct 33.2 L MCV 89.2 MCH 29.8 MCHC 33.4 RDW 13.3 Plt Count 191 MPV 12.1 H Neut % (Auto) 79.2 Lymph % (Auto) 9.2 L [place] % (Auto) 10.2 H Eos % (Auto) 0.4 Baso % (Auto) 0.8 Neut # (Auto) 6.7 Lymph # (Auto) 0.8 [place] # (Auto) 0.9 Eos # (Auto) 0.0 Baso # (Auto) 0.1 Sodium 140 Potassium 3.2 L Chloride 98 Carbon Dioxide 36 H Anion Gap 9.2 BUN 19 H D Creatinine 0.90 D Estimated Creat Clear 24 Estimated GFR 60 Est GFR ( Amer) 72 D Glucose 102 H Calcium 9.1 Magnesium 1.8 D Total Bilirubin 0.8 AST 67 H ALT 28 D Alkaline Phosphatase 56 Total Protein 7.0 Albumin 4.5 Globulin 2.5 Albumin/Globulin Ratio 1.8 DS: Diagnosis Discharge Diagnosis (1) NSTEMI (non-ST elevated myocardial infarction): Status: Acute Code(s): I21.4 - Non-ST elevation (NSTEMI) myocardial infarction (2) COPD (chronic obstructive pulmonary disease): Status: Acute Code(s): J44.9 - Chronic obstructive pulmonary disease, unspecified Qualifiers: COPD type: unspecified COPD Qualified Code(s): J44.9 - Chronic obstructive pulmonary disease, unspecified (3) Cachexia: Status: Acute Code(s): R64 - Cachexia (4) CAD (coronary artery disease): Status: Acute Code(s): I25.10 - Atherosclerotic heart disease of [place] coronary artery without angina pectoris (5) Severe protein-calorie malnutrition: Status: Acute Code(s): E43 - Unspecified severe protein-calorie malnutrition Meds Home Medications and Allergies Home Medications ?Medication ?Instructions ?Recorded ?Confirmed ?Type aspirin 81 mg tablet,delayed 81 mg PO DAILY 30 days #30 tabs 07/23/24 Rx release atorvastatin 40 mg tablet 40 mg PO HS 30 days #30 tabs 07/23/24 Rx clopidogrel 75 mg tablet 75 mg PO DAILY 30 days #30 tabs 07/23/24 Rx furosemide 40 mg tablet 20 mg (1/2 x 40 mg) PO Q48H 30 07/23/24 07/22/24 Rx days #0 tabs metoprolol succinate 50 mg 50 mg PO DAILY 30 days #30 tabs 07/23/24 Rx tablet,extended release 24 hr (Toprol XL) fluticasone fur. 100 mcg-umeclid 1 inh inhalation DAILY #60 ea 07/24/24 Rx 62.5 mcg-vilant 25 mcg inhalat.powder (Trelegy Ellipta) ipratropium 0.5 mg-albuterol 3 mg 3 ml inhalation Q4-6H #180 mL 07/24/24 Rx (2.5 mg base)/3 mL nebulization soln New Prescriptions to Start Prescriptions: aspirin Juan,Denis atorvastatin Juan,Denis clopidogrel Juan,Denis [id number] [Trelegy Ellipta] Raphael Bean ipratropium-albuterol Raphael Bean metoprolol succinate [Toprol XL] Denis Martinez Allergies Allergy/AdvReac Type Severity Reaction Status Date / Time amoxicillin (From Augmentin) Allergy Rash Verified 07/21/24 15:15 cefaclor (From Ceclor) Allergy Rash Verified 07/21/24 15:15 clavulanic acid (From Allergy Rash Verified 07/21/24 15:15 Augmentin) hydrocodone Allergy Unknown Verified 07/21/24 15:15 allergy reaction nitrofurantoin (From Allergy Rash Verified 07/21/24 15:15 Macrobid) omeprazole (From Prilosec) Allergy Unknown Verified 07/21/24 15:15 allergy reaction oxaprozin (From Daypro) Allergy Rash Verified 07/21/24 15:15 sulfamethoxazole (From Allergy Rash Verified 07/21/24 15:15 Bactrim) trimethoprim (From Bactrim) Allergy Rash Verified 07/21/24 15:15 Discharge Plan Disposition Patient Disposition: Home Health Service Condition: Fair Discharge Order Discharge Orders: Discharge Order (Routine); Ordered 07/24/24 Ordered By: Raphael Bean Follow up Plan Follow up with: Honey Rose [Primary Care Provider] - 07/30/24 8:45 am Cesar Conteh PA [Physician [place]/Woman] - 07/31/24 2:00 pm Adryan Samuel MD [Physician] - 09/18/24 10:20 am Prescriptions/Medication Reconciliation: New atorvastatin 40 mg Tablet 40 mg PO HS 30 Days Qty: 30 0RF metoprolol succinate [Toprol XL] 50 mg Tablet Extended Release 24 Hr 50 mg PO DAILY 30 Days Qty: 30 0RF clopidogrel 75 mg Tablet 75 mg PO DAILY 30 Days Qty: 30 0RF aspirin 81 mg Tablet,Delayed Release (Dr/Ec) 81 mg PO DAILY 30 Days Qty: 30 0RF Trelegy Ellipta 100-62.5-25 mcg blister with device 1 inh inhalation DAILY Qty: 60 0RF ipratropium-albuterol 0.5 mg-3 mg(2.5 mg base)/3 mL Solution For Nebulization 3 ml inhalation Q4-6H Qty: 180 0RF Changed furosemide 40 mg tablet 20 mg PO Q48H 30 Days Qty: 0 0RF Discontinued bisoprolol fumarate 5 mg tablet 2.5 mg PO DAILY Problem Reconciliation Problems Reviewed?: Yes Patient Discharge Instructions ACTIVITY: Continue current activity DIET: continue same diet Patient Instructions: DI for Heart Attack, Chronic Obstructive Pulmonary Disease, DI for Chronic Obstructive Pulmonary Disease, DI for Cardiac Catheterization, DI for Surgical Site Infection, Stop Light COPD Print Language: Andorran Providers Primary Care Provider: Honey Rose Admit Provider: Denis Martinez Attending Provider: Denis Martinez
[2024-07-24 15:42] LABS: Magnesium 1.8 mg/dl (1.6-2.3)
[2024-07-24] MEDS: FLUTICASONE/UMECLIDIN/VILANTER 100/62.5/25MCG INHALER 1 PUFF IH (16:05)
--- NOTE | 2024-07-25 09:59 | SW/DCPLANNER ---
Spoke with patient on the phone. Patient stated that she is doing very well. Patient stated that she wasnt aware of her upcoming appointments and i went over them with patient and she wrote them down. I also told patient that they should be wrote down on a piece of paper in her folder. Patient stated that son picked up some of her medicine when she was discharged and is picking the rest up today. Patient stated that she has no concerns or questions at this time. Cherelle Santana
== END 2024-07-24 16:15 | disposition home health service (06) | DRG 321 ==
PROVIDERS: Internal Medicine; Admitting Provider Student in an Organized Health Care Education/Training Program; PCP Family Medicine; Visit Provider Student in an Organized Health Care Education/Training Program
PROC: 027035Z Dilation of Coronary Artery, One Artery with Two Drug-eluting Intraluminal Devices, Percutaneous Approach (ICD-10-PCS; principal; 2024-07-22 13:00)
DX: I21.4 Non-ST elevation (NSTEMI) myocardial infarction (principal); E43 Unspecified severe protein-calorie malnutrition; Z68.1 Body mass index [BMI] 19.9 or less, adult; R64 Cachexia; J44.9 Chronic obstructive pulmonary disease, unspecified; I77.1 Stricture of artery; I10 Essential (primary) hypertension; D64.9 Anemia, unspecified; I25.10 Atherosclerotic heart disease of native coronary artery without angina pectoris; Z99.81 Dependence on supplemental oxygen; Z79.51 Long term (current) use of inhaled steroids; Z79.899 Other long term (current) drug therapy; Z88.0 Allergy status to penicillin; Z88.1 Allergy status to other antibiotic agents; Z88.8 Allergy status to other drugs, medicaments and biological substances; Z87.891 Personal history of nicotine dependence
CPT/HCPCS: 36415; 71045; 71275; 76706; 80048; 80053; 80061; 81001; 82607; 82728; 82746; 82803; 83036; 83735; 83880; 84145; 84439; 84443; 84484; 85007; 85025; 85347; 87633; 93005; 93306; 94640; 94760; 94761; 97110; 97163; 97166; 97530; 99152; C1725; C1769; C1874; J1200; J1644; J1650; J1938; J2250; J3010; J3475; J7613; J7620; J7644; Q9967

== ENCOUNTER 2024-07-31 15:14 | Outpatient (CLI) | payer MEDICARE, SELFPAY ==
[2024-07-31 16:57] LABS: Alanine Aminotransferase 21 U/L (12-78); Albumin Level 4.8 g/dl (3.5-5.0); Alkaline Phosphatase 81 U/L (38-126); Anion Gap 9.9 mEq/L (5-15); Aspartate Amino Transferase 32 U/L (14-36); Bilirubin,Direct 0.2 mg/dl (0.0-0.4); Bilirubin,Indirect 0.4 mg/dL (0.0-0.9); Bilirubin,Total 0.6 mg/dl (0.2-1.3); Bilirubin,Unconjugated 0.4 mg/dL (0.0-1.1); Blood Urea Nitrogen 18 mg/dl (7-17); Calcium 9.6 mg/dl (8.4-10.2); Carbon Dioxide 33 mmol/L (22.0-30.0); Chloride 101 mmol/L (98-107); Chol/HDL Ratio 1.6 (1-3.5); Cholesterol 153 mg/dl (140-200); Estimated Glomerular Filt Rate 60 ml/min (>60); GFR (African American) 72 ML/MIN (>60); Glucose 99 mg/dl (74-100); HDL Cholesterol 95 mg/dl (40-60); Potassium 4.9 mmoL/L (3.5-5.1); Sodium 139 mmol/L (136-145); Total Protein,Serum 6.9 g/dl (6.3-8.2); Triglycerides 81 mg/dl (30-150); VLDL Cholesterol 16 mg/dL (0-40)
[2024-07-31 16:59] LABS: Basophils # 0.1 K/mm3 (0-0.2); Basophils % 1.2 % (0.1-2.0); Eosinophils # 0.2 Kmm3 (0.0-0.4); Eosinophils % 2.2 % (0.1-12.0); Hematocrit 33.4 % (37.0-47.0); Hemoglobin 10.6 g/dL (12.2-16.2); Lymphocytes # 1.2 K/mm3 (0.7-4.5); Lymphocytes % 13.4 % (10-50); Mean Corpuscular HGB Conc 31.7 g/dL (31.8-35.4); Mean Corpuscular Hemoglobin 29.1 pg (27.0-31.2); Mean Corpuscular Volume 91.8 fl (81-99); Mean Platelet Volume 12.2 fl (7.4-10.4); Monocytes # 0.9 K/mm3 (0.1-1.0); Monocytes % 10.1 % (1.7-9.3); Neutrophils # 6.5 K/mm3 (1.8-7.8); Neutrophils % 72.9 % (37.0-80.0); Nucleated Red Blood Cells # 0 10^3/uL; Nucleated Red Blood Cells % 0 %; Platelet Count 260 K/mm3 (142-424); Red Blood Count 3.64 M/mm3 (4.20-5.40); Red Cell Distribution Width 13.5 % (11.5-17.5); White Blood Count 8.9 K/mm3 (4.8-10.8)
[2024-07-31 17:09] LABS: Direct LDL Cholesterol 37.17 mg/dL (100-129)
[2024-07-31 17:27] LABS: Thyroid Stimulating Hormone 1.47 uIU/mL (0.465-4.68)
[2024-07-31 17:28] LABS: Free T4 (Free Thyroxine) 1.16 ng/dl (0.78-2.19)
== END 2024-07-31 23:59 | disposition home or self-care (01) ==
LOC: LAB 15:15
PROVIDERS: PCP Family Medicine; Visit Provider Internal Medicine
DX: I11.9 Hypertensive heart disease without heart failure (principal); I25.10 Atherosclerotic heart disease of native coronary artery without angina pectoris; Z87.891 Personal history of nicotine dependence
CPT/HCPCS: 36415; 80048; 80061; 80076; 84439; 84443; 85025